=== PATIENT | male | born 1940 | race Caucasian/White ===

== ENCOUNTER 2018-01-15 13:40 | Outpatient (CLI) | payer MEDICARE, OTHER | END 2018-01-15 13:41 | disposition home or self-care (01) | LOC: BICULT 13:40 | PROVIDERS: ATTEND Internal Medicine | DX: N28.9 Disorder of kidney and ureter, unspecified (principal); N26.1 Atrophy of kidney (terminal) | CPT/HCPCS: 76770 ==

== ENCOUNTER 2018-03-07 15:10 | Outpatient (CLI) | payer MEDICARE, OTHER | END 2018-03-07 15:11 | disposition home or self-care (01) | LOC: BICRAD 15:10 | PROVIDERS: ATTEND Internal Medicine Medical Oncology | DX: D72.1 Eosinophilia (principal) | CPT/HCPCS: 71046 ==

== ENCOUNTER 2018-03-13 08:15 | Outpatient (CLI) | payer MEDICARE, OTHER ==
--- NOTE | 2018-03-13 11:24 | CT ---
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 COMPARISON: No prior CTs. There is a chest radiograph from 03/07/2018 done at the [facility] ing [facility] in [place] (formerly [facility]). TECHNIQUE: IV iodinated contrast media: Isovue-370 70 mL Oral contrast media: Readi-Cat 2 Single phase scans of thorax, abdomen, and pelvis. FINDINGS: The lesion in the left scapula, demonstrated on the plain chest radiograph, is demonstrated on this C T to represent a mixed sclerotic and osteolytic lesion that involves the entire glenoid, at least a p ortion of the coracoid, the scapular spine, and a portion of the acromion, of the left scapula. The lesion is at least mildly expansile, but the overlying cortex is preserved, with no periosteal elevat ion and no soft tissue mass component (i.e. a nonaggressive appearance). There is a 0.4 x 0.3 cm, no ncalcified, tiny pulmonary nodule in the lingula (axial image 39 of 60, series 3), which is probably too caudal to correspond to the faint pulmonary nodular density noted on the chest radiograph. There is no pulmonary nodule that exactly corresponds to that nodularity density on the chest radiograph. Additional tiny, faint, nodular, and linear densities abutting the left posteromedial pleural surfac e, and posterolateral pleural surface, of the left lower lobe are noted. These are nonspecific. At least one of these could represent small scar. There are additional tiny, [id number]-[id number] pulmonar y nodules on the order of less than 4 mm in size each, a few scattered bilaterally in the lungs. The re is no particularly suspicious pulmonary nodule and no cavitating pulmonary mass. There is a small , 5 mm pulmonary nodule at the posterior basilar segment of the left lower lobe, near the left mental health worker ior costophrenic angle, abutting the left hemidiaphragm. There is no mediastinal or hilar lymphadeno godwin. Atherosclerotic calcification of the thoracic aorta without aneurysm or dissection. No cardi omegaly, pleural effusion, or pneumothorax. No bronchiectasis or bullae. There is a 4 x 3.5 x 2.5 cm hepatic cyst in hepatic segment 4A of the left lobe. There is a 2 x 2 x 3.5 cm hepatic cyst at the far inferior tip of the right lobe of the liver, in hepatic segment 6. Th ere are a few other tiny, subcentimeter hypodensities in the left and right lobes that are too small to characterize, but statistically most likely represent additional cysts. Atherosclerotic calcifica tion of nonaneurysmal abdominal aorta. No major pathology identified involving the bilateral kidneys , the right adrenal, the pancreas, or the spleen. Thickening of the left adrenal gland, suggestive o f hyperplasia. No gastrohepatic, elizabeth hepatis, retroperitoneal, mesenteric, or iliac chain signific ant lymphadenopathy. No small bowel dilation. No free fluid or free air within the abdominal cavity or pelvic cavity. A large number of diverticula throughout the sigmoid colon, without gross evidenc e of diverticulitis. Decompressed urinary bladder, difficult to evaluate. No destructive osseous le michael identified. IMPRESSION: 1. 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 The other possibility is fibrous dysplasia. 2. Multiple tiny bilateral noncalcified pulmonary nodules, nonspecific. Based on their sizes, they are of low probability for malignancy. 3. Hepatic cysts. 4. Sigmoid colonic diverticulosis without diverticulitis. 5. No definitive evidence for malignancy. HALIMA Mckinnon POS: [facility]
[2018-03-13] MEDS ORDERED: Iopamidol 370 76% 100 ML VIAL ONE (11:34)
--- NOTE | 2018-03-13 11:53 | ULT ---
THYROID ULTRASOUND: Date: 03/13/18 HISTORY: 77-year-old male with history of eosinophilia. Paraneoplastic syndrome. FINDINGS: The right lobe measures 4.0 x 1.5 x 2.1 cm. The left lobe measures 3.7 x 1.6 x 1.6 cm. Thyroid echoge nicity is very heterogeneous around both right and left lobes. A small hypodense nodule in the right lobe measuring 0.4 x 0.4 x 0.8 cm. Small 0.3 x 0.3 x 0.4 cm nodule, hypoechoic, in the left lobe. IMPRESSION: Very heterogeneous echogenicity throughout both right and left lobes of thyroid. Small hypoechoic nod ules in right and left lobes. POS: [facility]
== END 2018-03-13 08:16 | disposition home or self-care (01) ==
LOC: CT 08:15
PROVIDERS: ATTEND Internal Medicine Medical Oncology
DX: D72.1 Eosinophilia (principal); R91.8 Other nonspecific abnormal finding of lung field; K76.89 Other specified diseases of liver; K57.30 Diverticulosis of large intestine without perforation or abscess without bleeding; E04.2 Nontoxic multinodular goiter; M75.92 Shoulder lesion, unspecified, left shoulder
CPT/HCPCS: 71260; 74177; 76536

== ENCOUNTER 2018-09-01 10:02 | Observation (INO) | payer MEDICARE, OTHER ==
[2018-09-01 10:52] LABS: #Basophils 0.1 thou/uL (0.0-0.2); #Eosinphils 1.7 thou/uL (0.0-0.7); #Lymphocytes 2.7 thou/uL (1.20-3.40); #Monocytes 0.6 thou/uL (0.11-0.59); #Neutrophils 4.1 thou/uL (1.40-6.50); %Basophils 1.2 % (0.0-1.0); %Eosinophils 18.5 % (0.0-10.0); %Lymphocytes 29.1 % (21.0-51.0); %Monocytes 6.8 % (0.0-10.0); %Neutrophils 44.4 % (42.0-75.0); Hemoglobin 15.7 g/dL (14.0-18.0); Mean Corpuscular HGB CONC 33.6 g/dL (32.0-36.0); Mean Corpuscular Volume 92.3 fL (78.0-98.0); Mean Platelet Volume 6.8 fL (7.4-10.4); Platelet Count 338 thou/uL (130-400); RBC Distribution Width 11.6 % (11.5-14.5); Red Blood Cell (RBC) Count 5.07 mill/uL (4.70-6.10); White Blood Cell (WBC) Count 9.2 thou/uL (4.8-10.8)
[2018-09-01] MEDS ORDERED: Nitroglycerin 2% Ointment 1 INCH/1 GM Packet ONE (10:55)
--- NOTE | 2018-09-01 10:55 | RAD ---
SINGLE VIEW OF THE CHEST: Comparison: 03-07-18 History: Left shoulder and chest pain. FINDINGS: Single view of the chest shows a normal sized cardiomediastinal silhouette. There is no evidence of c onsolidation, mass, or pleural effusion. The bones are unremarkable. IMPRESSION: No evidence of acute cardiopulmonary disease. POS: [facility]
[2018-09-01 11:14] LABS: ALT (SGPT) 18 U/L (8-55); AST (SGOT) 16 U/L (5-34); Albumin 4.6 g/dL (3.4-4.8); Alkaline Phosphatase 85 U/L (40-150); Anion Gap 15 mmol/L (10-20); BUN (Urea Nitrogen) 22 mg/dL (8.4-25.7); Bilirubin, Total 0.6 mg/dL (0.2-1.2); CK (CPK) 73 U/L (30-200); Calc. Creatinine Clearance 0 mL/min (70-130); Calcium 9.9 mg/dL (7.8-10.44); Carbon Dioxide 23 mmol/L (23-31); Chloride 104 mmol/L (98-107); Estimated GFR-MDRD 53; Globulin 2.8 g/dL (2.4-3.5); Glucose 111 mg/dL (83-110); Lipase 19 U/L (8-78); Potassium 4.7 mmol/L (3.5-5.1); Protein, Total 7.4 g/dL (5.8-8.1); Sodium 137 mmol/L (136-145)
[2018-09-01 11:16] LABS: CKMB 1.7 ng/mL (0-6.6); Troponin I Less than 0.010 ng/mL (< 0.028)
[2018-09-01] MEDS ORDERED: Dextrose 5% in Water 1,000 ML IV PRN (13:36)
[2018-09-01] MEDS ORDERED: Calcium Carbonate 500 MG ChewTAB PO PRN (13:36)
[2018-09-01] MEDS ORDERED: Ondansetron ODT 4 MG TAB PO PRN (13:36)
[2018-09-01] MEDS ORDERED: HYDROcodone/Acetaminophen 5/325 mg Tablet PO PRN (13:36)
[2018-09-01] MEDS ORDERED: Nitroglycerin 0.4 MG TAB (25 Tab Bottle) SL PRN (13:36)
[2018-09-01] MEDS ORDERED: HumaLOG 300 UNITS/3 ML VIAL SC PRN ×2 (13:36)
[2018-09-01] MEDS ORDERED: Ondansetron HCl/PF 4 MG/2 ML Vial IVP PRN (13:36)
[2018-09-01] MEDS ORDERED: Acetaminophen 325 MG TAB PO PRN (13:36)
[2018-09-01] MEDS ORDERED: Bisacodyl 10 MG SUPP PR PRN (13:36)
[2018-09-01] MEDS ORDERED: Diabetic Tussin 200 MG/10 ML UDCUP PO PRN (13:36)
[2018-09-01] MEDS ORDERED: Dextrose 50% Abboject 50 ML SYRINGE SLOW IVP PRN (13:36)
[2018-09-01] MEDS ORDERED: Sodium Chloride 0.65% Nasal 44 ML BOT EA NARE PRN (13:36)
[2018-09-01] MEDS ORDERED: Bisacodyl 5 MG TAB PO PRN (13:36)
[2018-09-01] MEDS ORDERED: hydrALAZINE 20 MG/ML VIAL SLOW IVP PRN (13:36)
[2018-09-01] MEDS ORDERED: Loratadine 10 MG TAB PO PRN (13:36)
[2018-09-01] MEDS ORDERED: Zolpidem Tartrate 5 MG TAB PO PRN (13:36)
[2018-09-01] MEDS ORDERED: Eucerin (Mineral Oil/Petrolatum,White) 30 gm Jar TOP PRN (13:36)
[2018-09-01] MEDS ORDERED: Loperamide HCl 2 MG CAP PO PRN (13:36)
[2018-09-01] MEDS ORDERED: Chloraseptic Spray 180 ml Bottle PO PRN (13:36)
[2018-09-01] MEDS ORDERED: Artificial Tears 18 DROP/0.9 ML EA EYE PRN (13:36)
[2018-09-01 13:49] VITALS: BMI 25.4
--- NOTE | 2018-09-01 13:58 | HP ---
DATE OF ADMISSION: 09/01/2018 PRIMARY CARE PHYSICIAN: Lydia Hatfield M.D. REASON FOR ADMISSION: Sent by primary care physician for chest pain. HISTORY OF PRESENT ILLNESS: A 77-year-old male who has underlying history of hiatal hernia as well a s gastroesophageal reflux disease who came to emergency room for chest pain. The patient reports becki t today he made an appointment with Dr. Hatfield for his recurrent chest pain. The patient had EKG don e in his primary care physician's office, which was normal and the patient was given aspirin at the [facility] and subsequently primary care physician sent him to ER for further evaluation. This patient reports that for last 1 year, he is getting intermittent chest discomfort a couple of ti mes a year, but for the last 2 weeks, he is experiencing more and more chest discomfort, which is pre dominantly left-sided in location, sometimes it radiates to left shoulder and left arm, sometimes it just remains in the left side of the chest. He feels nausea. Sometimes he reports that after walkin g to a few distance, his chest pain gets better. Burping also helps. He feels nausea, but never had any vomiting. The patient attributes his chest discomfort to his history of hiatal hernia and gastr oesophageal reflux disease. For that, he is taking Nexium. He had endoscopy done a few years ago. He denies any NSAID abuse. He denies any black tarry stool. He denies any weight loss. He denies a ny dysphagia. The patient reports that he is doing nonpharmacological measures for his acid reflux, but still his s ymptoms are not well controlled. He is taking Nexium daily. He never had any cardiac workup done. For the last 4 days, he was having more and more chest discomfort and that is why he made appointment with primary care physician today and primary care physician sent him to ER for cardiac workup rule out. The patient does report epigastric discomfort. The patient does report that after eating food, he fe els food smell whatever he ate several hours ago. He denies any regurgitation. He denies any UTI sy mptoms. He denies any constipation or diarrhea. REVIEW OF SYSTEMS: The following complete review of systems was negative, unless otherwise mentioned in the HPI or below: Constitutional: Weight loss or gain, ability to conduct usual activities. Sk in: Rash, itching. Eyes: Double vision, pain. ENT/Mouth: Nose bleeding, neck stiffness, pain, te nderness. Cardiovascular: Palpitations, dyspnea on exertion, orthopnea. Respiratory: Shortness of breath, wheezing, cough, hemoptysis, fever or night sweats. Gastrointestinal: Poor appetite, abdom inal pain, heartburn, nausea, vomiting, constipation, or diarrhea. Genitourinary: Urgency, frequenc y, dysuria, nocturia. Musculoskeletal: Pain, swelling. Neurologic/Psychiatric: Anxiety, depressio n. Allergy/Immunologic: Skin rash, bleeding tendency. Please see my HPI for pertinent positive and negative. All other review of system reviewed and negative except as mentioned in the HPI. 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 PAST SURGICAL HISTORY: C-spine surgery, appendicectomy, sinus surgery, surgery for ruptured ulcer. PAST PSYCHIATRIC HISTORY: Reviewed and negative. SOCIAL HISTORY: The patient denies any smoking or alcohol abuse. He is a former smoker. He denies any other illicit drug abuse. FAMILY HISTORY: Positive for heart disease, [place] to his father by age of 50. No family history of can cer. ALLERGIES: No known drug allergy. CURRENT HOME MEDICATIONS: The patient did not bring his home medication, so unable to verify, but he reports that he is taking Nexium. We will obtain the patient's home medication when family member b rings from home. EMERGENCY ROOM COURSE: The patient was given aspirin by primary care physician. Nitropatch was appl ied in the emergency room. PHYSICAL EXAMINATION: VITAL SIGNS: On arrival, blood pressure 159/89, pulse 69, respiratory rate 15, temperature 98.4, sat uration 99% on room air, weight 71.2 kilograms. GENERAL: The patient is currently alert, awake, in no obvious acute distress. HEAD: Normocephalic, atraumatic. EYES: Pupils round and reactive to light. Extraocular muscles intact. ENT: Oropharynx within normal limits. Moist mucous membranes. No oral lesion, no pharyngeal erythe ma, no exudate. NECK: Supple, no JVD, no thyromegaly, no carotid bruit, no jugular venous distention. LUNGS: Clear to auscultation without any rhonchi or rales. CARDIAC: S1, S2 regular. No murmur, no gallop, no rub. ABDOMEN: The patient does have mild epigastric discomfort. No peritoneal sign, no Boswell sign, no o rganomegaly, no distention, no suprapubic tenderness. BACK: Unremarkable. No CVA tenderness. EXTREMITIES: Upper extremities, passive movement of all joints are normal. Lower extremities, no ed brennon. Good distal pulsation. SKIN: No skin rash. HEMATOLOGICAL: No lymphadenopathy. PSYCHIATRIC: Normal affect. SIGNIFICANT LABORATORY DATA: EKG showing normal sinus rhythm, nonspecific ST-T changes. Chest x-ray based on my review, no acute cardiopulmonary process. CBC, WBC 9.2, hemoglobin 15.7, platelets 338, 000. BMP, sodium 137, potassium 4.7, chloride 104, carbon dioxide 23, BUN 22, creatinine 1.30, gluco se 111, calcium 9.9. LFT, AST 16, ALT 18, alkaline phosphatase 85, albumin 4.6, lipase 19. CK is 73 , CK-MB 1.7. Troponin I less than 0.010. ASSESSMENT AND PLAN: 1. Recurrent chest pain. The patient's chest pain description is predominantly consistent with priscila rointestinal etiology related. The patient never had a cardiac workup done and he has family history and other risk factors for coronary artery disease. The patient and primary care physician are conc erned about cardiac etiology. At this point, EKG is nonspecific and cardiac enzymes are negative. W e will keep this patient in hospital and we will do serial cardiac enzymes x3 and we will monitor on telemetry floor. This morning, the patient already had coffee and home medication, so we will not be able to do stress test today, but we will keep him n.p.o. after midnight and will do stress test teodora orrow morning. We will check lipid profile for risk stratification. We will also treat his symptoms with Protonix 40 mg IV b.i.d. while in hospital. This patient does not have any alarming feature to do any gastrointestinal workup while in hospital. 2. Gastroesophageal reflux disease, poorly controlled with hiatal hernia. He might have underlying gastritis. At this point, we will treat him with Protonix 40 mg IV b.i.d. He does not have any alar uma feature. He already had upper endoscopy in the recent past and he will need outpatient referral to hooker laster and based on that finding, the patient may benefit in the future for hiatal he rnia repair. At this point, the patient needs conservative therapy with medicines and I have also ed ucated the patient about nonpharmacological treatment of gastroesophageal reflux disease and hiatal h ernia. 3. History of diabetes type 2. We will obtain the patient's home medication and we will monitor Acc u-Chek a.c. and at bedtime and cover with insulin as per sliding scale. 4. Hypertension. We will obtain the patient's home medication and resume while in hospital. 5. Hypothyroidism. We will continue the patient's home medication. 6. Dyslipidemia. Check lipid profile tomorrow and continue his statin therapy. 7. Deep venous thrombosis prophylaxis not needed because we are expecting discharge in 24 hours. 8. Gastrointestinal prophylaxis, the patient is already on Protonix therapy. 9. Code status: The patient is full code. The patient's daughter is surrogate decision maker. Disposition plan based on stress test result, likely within 24 hours. Plan of care discussed with cara hanna patient and family member at bedside in the emergency room in detail.
[2018-09-01 14:18] LABS: Troponin I Less than 0.010 ng/mL (< 0.028)
[2018-09-01] MEDS ORDERED: Aspirin 325 MG TAB PO SCH (14:45)
[2018-09-01 17:30] LABS: Troponin I Less than 0.010 ng/mL (< 0.028)
[2018-09-01] MEDS: Nitroglycerin 2% Ointment 1 INCH/1 GM Packet TOP SCH ×2 (18:05→20:55)
[2018-09-01] MEDS ORDERED: diphenhydrAMINE 25 MG CAP PO PRN (20:34)
[2018-09-01] MEDS: Pantoprazole 40 MG VIAL IVP SCH (20:55)
[2018-09-02 04:46] LABS: Cardiac Risk 6.7 (Less than 4.5)
[2018-09-02] MEDS ORDERED: Levothyroxine Sodium 25 MCG TAB PO SCH (06:00)
[2018-09-02 08:09] VITALS: TEMP 97.7
[2018-09-02] MEDS: Pantoprazole 40 MG VIAL IVP SCH (08:58)
[2018-09-02] MEDS ORDERED: Aspirin 325 MG TAB PO SCH (09:00)
[2018-09-02] MEDS ORDERED: Amlodipine 10 MG TAB PO SCH (09:00)
[2018-09-02] MEDS: Nitroglycerin 2% Ointment 1 INCH/1 GM Packet TOP SCH (11:00)
[2018-09-02 11:37] VITALS: BP 130/61
--- NOTE | 2018-09-02 13:46 | NM ---
MYOCARDIAL PERFUSION SCAN WITH SPECT IMAGING: HISTORY: Chest pain. TECHNIQUE/FINDINGS: Examination is performed using 33 mCi 99m-technetium sestamibi on the stress and 10 on the resting im ages. This shows a normal distribution of radiopharmaceutical. No signs of ischemia or scar. WALL MOTION: There is symmetric contractility to the ventricle. LEFT VENTRICULAR EJECTION FRACTION: The calculated left ventricular ejection fraction is 77%. IMPRESSION: Unremarkable myocardial perfusion scan. POS: [facility]
[2018-09-02] MEDS ORDERED: Atorvastatin Calcium 40 MG TAB PO SCH (21:00)
--- NOTE | 2018-09-03 01:22 | DIS ---
DATE OF ADMISSION: 09/01/2018 DATE OF DISCHARGE: 09/02/2018 DIAGNOSES: 1. Chest pain, most likely gastrointestinal in etiology. 2. Gastroesophageal reflux disease. 3. Hiatal hernia. 4. Essential hypertension. 5. Dyslipidemia. CONSULTATIONS: None. CODE STATUS: FULL. PROCEDURES: Chest x-ray was unremarkable. Nuclear medicine stress test with EF of 77%, unremarkable . PHYSICAL EXAMINATION: VITAL SIGNS: Temperature 97.7, pulse is 69, respirations are 16, pulse oximetry 94% on room air. Bl ood pressure is 130/61. REVIEW OF SYSTEMS: Negative. PHYSICAL EXAMINATION: Normal on exam this morning. HOSPITAL COURSE: Patient was sent to the ER from the PCP office yesterday for chest pain which has b een intermittent for the last year, but worse in the last 2 weeks and is complaining of some nausea. She denies vomiting or diarrhea. Serial troponins were negative. Stress test was unremarkable. La bs were also unremarkable other than some lipidemia, which will be treated today. He reports no ches t pain. Reports some epigastric discomfort, but it is improved after medications given to him today and he will be discharged home to follow up with his PCP in a week. ALLERGIES: None. DISCONTINUED MEDS NEW: Lipitor 40 mg p.o. daily. We will resume amlodipine 10 mg p.o. daily, Nexium 40 mg p.o. daily, enalapril 20 mg p.o. daily, and levothyroxine 25 mcg p.o. daily. DISCHARGE CONDITION: Stable. DISPOSITION: Home via private vehicle with the need to follow up with Dr. Hatfield in 1 week.
--- NOTE | 2018-09-04 11:11 | STRESS ---
Acquisition Time: 2018-09-02 09:58:21 Total Exercise Time: 00:09:00 Test Indications: CHEST PAIN Medications: Protocol: JOE Max HR: 129 BPM 91% of Pred: 141 BPM Max BP: 138/052 mmHG Max Work Load: 10.4 METS RESTING ECG: NORMAL SINUS RHYTYM WITH INCOMPLETE RIGHT BUNDLE BRANCH BLOCK SYMPTOMS: LOPEZ NORMAL BP RESPONSE ECTOPY: NONE ECG STRESS: NO SIGNIFICANT CHANGES INTERPRETATION: NEGATIVE ECG / AWAIT NUCLEAR IMAGES FOR DEFINITIVE DIAGNOSIS COMMENTS: EXERCISED 9:00 PEAK HEART RATE 127 BPM Confirmed by JEAN MARIE LÓPEZ ([id number]), video editor NATALIE FOX ([id number]) on 09/04/2018 11:11:10 AM Referred By: MD PRIETO Confirmed By:JEAN MARIE LÓPEZ
== END 2018-09-02 14:52 | disposition home or self-care (01) ==
LOC: ERS 10:02 → 2SW 12:24
PROVIDERS: ADMIT Internal Medicine; ATTEND Internal Medicine
DX: R07.89 Other chest pain (principal); K21.9 Gastro-esophageal reflux disease without esophagitis; K44.9 Diaphragmatic hernia without obstruction or gangrene; E11.9 Type 2 diabetes mellitus without complications; E03.9 Hypothyroidism, unspecified; E78.5 Hyperlipidemia, unspecified; I10 Essential (primary) hypertension; H90.5 Unspecified sensorineural hearing loss; Z79.899 Other long term (current) drug therapy
CPT/HCPCS: 71045; 78452; 80053; 80061; 82550; 82553; 82962 ×2; 83690; 84484 ×2; 85025; 90662; 93005; 93017; 96374; 99285; A9500; G0008; G0378 ×2; 36415; 36416; 90471; C9113

== ENCOUNTER 2018-09-19 09:40 | Outpatient (CLI) | payer MEDICARE, OTHER ==
[2018-09-19] MEDS ORDERED: ISOVUE-370 76%-LOCM 1 ML ONE (10:36)
--- NOTE | 2018-09-19 16:36 | CT ---
CT ABDOMEN WITH AND WITHOUT IV CONTRAST: 09/19/18 HISTORY: Constipation. Gastroesophageal reflux. Prior cystic lesions in the liver. Followup exam. COMPARISON: 03/13/18. FINDINGS: Vascular calcifications are seen in the visualized thoracic as well as involving the abdominal aorta and iliac arteries. Again noted are multiple tiny noncalcified pulmonary nodules present at each lung base, greater on th e right with calcified granulomata also seen in the right lower lobe and calcified right hilar lymph nodes partially imaged. These findings are unchanged from the prior exam. The hypodense hepatic lesions are again seen with larger hepatic hypodense lesion measuring 4.1 cm in the left hepatic lobe again demonstrating characteristics most compatible with a cyst with a fluid a ttenuation hypodense lesion measuring 3.4 cm again seen in the most inferior aspect posterior segment right hepatic lobe. A few subcentimeter too small to characterize hypodense lesions are also again s een in the liver, also statistically likely related to cysts. Stable mild lobulated appearance of each kidney which may be related to lobulation. Calcified granulomata are seen in the spleen. The pancreas, bilateral adrenal glands, and opacified bowel demonstrate a normal CT appearance. Sugge sted area of thickening in the most inferior slice through the pelvis within the ascending colon. How ever, this is incompletely imaged or evaluated on this examination. No abnormality was present in thi s region on prior CT exam and this may be related to area of peristalsis. Opacified small bowel is no rmal in caliber. IMPRESSION: 1. Stable 4 mm or less pulmonary nodules at each lung base, greater in number on the right e. 2. Hepatic cysts. 3. Suggested area of thickening of the ascending colon, but this area is incompletely imaged, an d no abnormality was seen in this region on the prior study. This may be related to peristalsis but i s incompletely evaluated on this exam. 4. Vascular calcifications. POS: [facility]
== END 2018-09-19 09:41 | disposition home or self-care (01) ==
LOC: BICCT 09:40
PROVIDERS: ATTEND Internal Medicine
DX: K21.9 Gastro-esophageal reflux disease without esophagitis (principal); K59.00 Constipation, unspecified; K76.89 Other specified diseases of liver; I70.90 Unspecified atherosclerosis; R93.3 Abnormal findings on diagnostic imaging of other parts of digestive tract; R91.8 Other nonspecific abnormal finding of lung field
CPT/HCPCS: 74170

== ENCOUNTER 2019-01-24 16:46 | Inpatient (IN) | payer MEDICARE, OTHER ==
[~2019-01-24 16:46] MED LIST: ISOVUE-370 76%-LOCM 1 ML ONE
[2019-01-24 17:17] LABS: #Basophils 0.1 thou/uL (0.0-0.2); #Eosinphils 1.9 thou/uL (0.0-0.7); #Lymphocytes 3.9 thou/uL (1.20-3.40); #Neutrophils 5.8 thou/uL (1.40-6.50); %Basophils 0.8 % (0.0-1.0); %Eosinophils 14.8 % (0.0-10.0); %Lymphocytes 30.7 % (21.0-51.0); %Monocytes 7.5 % (0.0-10.0); %Neutrophils 46.2 % (42.0-75.0); Hemoglobin 16.4 g/dL (14.0-18.0); Mean Corpuscular HGB CONC 33.5 g/dL (32.0-36.0); Mean Corpuscular Hemoglobin 31.6 pg (27.0-31.0); Mean Corpuscular Volume 94.4 fL (78.0-98.0); Platelet Count 405 thou/uL (130-400); RBC Distribution Width 11.5 % (11.5-14.5); Red Blood Cell (RBC) Count 5.19 mill/uL (4.70-6.10); White Blood Cell (WBC) Count 12.6 thou/uL (4.8-10.8)
[2019-01-24 17:22] LABS: PTT 28.6 SEC (22.9-36.1); Prothrombin Time 13.3 SEC (12.0-14.7)
[2019-01-24 17:31] LABS: ALT (SGPT) 19 U/L (8-55); AST (SGOT) 20 U/L (5-34); Albumin 4.9 g/dL (3.4-4.8); Alkaline Phosphatase 101 U/L (40-150); Anion Gap 17 mmol/L (10-20); BUN (Urea Nitrogen) 23 mg/dL (8.4-25.7); Bilirubin, Total 0.3 mg/dL (0.2-1.2); CK (CPK) 184 U/L (30-200); Calc. Creatinine Clearance 0 mL/min (70-130); Calcium 10.1 mg/dL (7.8-10.44); Carbon Dioxide 22 mmol/L (23-31); Chloride 104 mmol/L (98-107); Estimated GFR-MDRD 44; Globulin 3.4 g/dL (2.4-3.5); Glucose 110 mg/dL (83-110); Potassium 4.3 mmol/L (3.5-5.1); Protein, Total 8.3 g/dL (5.8-8.1); Sodium 139 mmol/L (136-145)
--- NOTE | 2019-01-24 17:38 | CT ---
CT BRAIN 01/24/19 HISTORY: Left sided arm and leg weakness with aphasia. Noncontrast enhanced CT images of the brain obtained. Brain and bone windows obtained. CT images demonstrate the brain to be unremarkable. No evidence of intracranial masses, hemorrhages, strokes or contusions seen. Small area of calcification seen in the left globus pallidus. The rest of the brain is unremarkable. No evidence of other significant abnormalities seen. IMPRESSION: Unremarkable CT brain. Findings discussed with Dr. Juan, ordering physician, at 5:28 p.m. on 01/24/19. Code CR POS: [facility]
[2019-01-24] MEDS ORDERED: Aspirin 325 MG TAB ONE (18:11)
--- NOTE | 2019-01-24 18:38 | CT ---
CONTRAST ENHANCED CTA CAROTID ARTERIES AND INTRACRANIAL CTA 01/24/19 HISTORY: Patient with clinical symptoms of stroke. Left sided weakness. Contrast enhanced CT images of carotid arteries (neck) and intracranial CTA performed. 2D and 3D huong nstructed images performed on an independent 3D workstation. Images demonstrate ACDF with fusion of the C4, C5 and C6 vertebral levels. There is anterior bridging osteophyte also abutting the superior aspect of the ACDF plates extending from the C3 level. Calcifi cation of the aorta seen. the right brachiocephalic artery is patent. RIGHT CAROTID: The right common carotid artery is patent in the proximal and mid portions. In the distal most aspect of the right CCA, there is dense calcified and noncalcified plaque resulting in approximately 70% di stal right CCA and proximal right ICA stenosis. Just passed the bifurcation the right ICA is patent. Good flow is seen in the right ICA into the intracranial portion. LEFT CAROTID: The left common carotid artery has some atherosclerotic calcified and noncalcified plaques in the dis verito aspect of the left CCA extending to the left ICA resulting in approximately 40% left ICA stenosis . More distally, the left ICA is patent. The right and left vertebral arteries are patent all the way to their origin. Both vertebral arteries contain some calcified plaques in their proximal most aspect as they originate from the right and le ft subclavian arteries. INTRACRANIAL CTA: Normal flow seen in the supraclinoid ICA, MARII, MCA, as well as basilar artery and posterior cerebral arteries. IMPRESSION: 1. Bilateral origin vertebral artery calcifications. 2. Bilateral distal CCA and proximal ICA calcified and noncalcified plaques more prominent on th e right than on the left. POS: [facility]
--- NOTE | 2019-01-24 18:58 | RAD ---
AP VIEW CHEST 01/24/19 HISTORY: Neck pain. Chest pain. AP view chest is obtained on 01/24/19. Comparison made to a previous exam from 09/01/18. AP view chest demonstrates the lungs to be well aerated. No evidence of active intrathoracic disease seen. No evidence of effusions, pneumonia, or pneumothorax seen. IMPRESSION: Unremarkable AP view chest. POS: [facility]
[2019-01-24] MEDS ORDERED: hydrALAZINE 20 MG/ML VIAL SLOW IVP PRN (19:40)
[2019-01-24] MEDS ORDERED: Acetaminophen 650 MG Suppository PR PRN (19:46)
[2019-01-24] MEDS ORDERED: Ondansetron ODT 4 MG TAB PO PRN (19:46)
[2019-01-24] MEDS ORDERED: Acetaminophen 325 MG TAB PO PRN (19:46)
[2019-01-24 20:06] LABS: Lactic Acid 2.4 mmol/L (0.5-2.2)
[2019-01-24 23:11] VITALS: BMI 25.2
[2019-01-24] MEDS: Famotidine/PF 20 mg/2ml Vial SLOW IVP SCH (23:41)
[2019-01-24] MEDS: Benzonatate 100 MG CAP PO SCH (23:42)
[2019-01-25] MEDS: Sodium Chloride 0.9% 1,000 ML IV SCH ×2 (01:44→14:18)
--- NOTE | 2019-01-25 01:55 | HP ---
CHIEF COMPLAINT: Left tongue numbness with slurred speech and left upper/lower extremity weakness. HISTORY OF PRESENT ILLNESS: Mr. Latham is a very pleasant 78-year-old man, presenting with complaints of left tongue numbness that started at approximately 3:00 or 4:00 pm. He states he began to note slurring of his speech and then began to experience numbness along the left side of his face, pain in the left neck and weakness in the left arm and left leg. The patient states his symptoms resolved shortly after arriving to the emergency department. He was given 325 mg of aspirin at 6:00 pm. He denies having any associated headaches or vision disturbances. At this present time, he is fully back to baseline. He denies having any symptoms like this before. He has a background history of hypertension and dyslipidemia. The patient states he was recently treated for bronchitis by his primary care physician and recently completed a course of antibiotics. He does not use an inhaler at home, but recently was given one to help with his breathing. He reports having a persistent cough that was on occasion productive for [place] sputum. He denies any hemoptysis. He has been afebrile, but complaining of persisting coughing fits. REVIEW OF SYSTEMS: All other review of systems apart from those mentioned in HPI are negative. PAST MEDICAL HISTORY: 1. Hypertension. 2. Hypothyroidism. 3. Dyslipidemia. 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 5. History of colon polyps. 6. History of duodenal ulcers. 7. GERD. PAST SURGICAL HISTORY: 1. Previous spine surgery. 2. Appendectomy. 3. Sinus surgery. 4. Surgery for a perforated ulcer. SOCIAL HISTORY: The patient drinks alcohol socially. He smoked previously many years ago. Denies any drug use. He is fully independent and mobilizes without any assistive devices. ALLERGIES: HYDROCODONE. CURRENT MEDICATIONS: 1. Amlodipine 10 mg p.o. daily. 2. Esomeprazole 40 mg p.o. daily. 3. Enalapril 10 mg p.o. daily. 4. Crestor 10 mg p.o. daily. 5. ProAir HFA 90 mcg two puffs inhaled p.r.n. 6. Levothyroxine 25 mcg p.o. daily. PHYSICAL EXAMINATION: GENERAL: The patient appears well developed, well nourished, is in no acute distress. VITAL SIGNS: Temperature 98.7, pulse 70, respirations 17, O2 saturation 94% on room air, blood pressure 142/74. HEENT: Normocephalic and atraumatic. Pupils are equal, round, and reactive to light. Extraocular movements are intact without nystagmus. Oropharynx is clear. NECK: Supple without lymphadenopathy or tenderness. LUNGS: Notable for mild expiratory wheezes at the bilateral bases. Deep inspiration causes coughing fits. Denies any chest pain. CARDIAC: Regular rate and rhythm. ABDOMEN: Soft, nontender, nondistended. Normoactive bowel sounds present. EXTREMITIES: Without any edema, calf pain, or swelling. NEUROLOGIC: Alert and oriented x3. Power 5/5 in all limbs. No neuro deficits on exam. Sensation intact. No tongue deviation. Facial movements normal. Face sensation is intact. No cerebellar signs. SKIN: Without rash or jaundice. LABORATORY DATA: White blood count 12.6, hemoglobin 16.4, platelets 405. PT 13.3, INR 1.0, PTT 28.6. Sodium 139, potassium 4.3, carbon dioxide 22, anion gap 17, BUN 23, creatinine 1.52, GFR 44, lactate 2.4, calcium 10.1, total bilirubin 0.3, AST 20, ALT 19, alkaline phosphatase 101, CK 184, troponin negative. BNP 15.9. IMAGING DATA: 1. Chest x-ray. Unremarkable with no evidence of effusions or pneumonia. 2. CT brain. Unremarkable. 3. CT angio of head and neck. Bilateral origin vertebral artery calcifications. Bilateral distal CCA and proximal ICA calcified and noncalcified plaques, more prominent on the right than on the left. IMPRESSION AND PLAN: Mr. Latham is a very pleasant 78-year-old man, being admitted for management of the following. 1. TIA/stroke. The patient's symptoms have fully resolved. He has undergone imaging as above that has been unremarkable thus far. We have requested an echo, carotid ultrasound, and MRI of the brain. Neuro consult requested. The patient has been started on aspirin and atorvastatin. 2. Bronchitis. Likely viral, he recently completed a course of antibiotics and possibly steroids. Leukocytosis could be due to recent steroid use, but we will continue to monitor. The patient is afebrile. Procalcitonin ordered. For cough we will give Tessalon Perles and guaifenesin. DuoNebs as he had a slight wheeze on exam. Monitor on O2 saturation and temperature. Chest x-ray was negative. 3. Hypertension. Resume home medications. Monitor blood pressure. 4. Gastrointestinal prophylaxis. 5. Deep venous thrombosis prophylaxis. Mechanical SCDs. 6. Code status, full at the present time. The patient does wish to discuss advanced directives as there are things he feels he may not want done such as mechanical ventilation. He would like to discuss this further with his family. A palliative care consult has been placed for advance directives. The patient's case was discussed with Dr. George, who agrees with plan of care as described above. Job ID: [id number] MTDD
[2019-01-25] MEDS: Levothyroxine Sodium 25 MCG TAB PO SCH (05:43)
[2019-01-25 05:45] LABS: #Basophils 0.1 thou/uL (0.0-0.2); #Eosinphils 1.7 thou/uL (0.0-0.7); #Lymphocytes 3.5 thou/uL (1.20-3.40); #Monocytes 0.9 thou/uL (0.11-0.59); #Neutrophils 4.2 thou/uL (1.40-6.50); %Basophils 0.8 % (0.0-1.0); %Eosinophils 16.2 % (0.0-10.0); %Lymphocytes 34.4 % (21.0-51.0); %Monocytes 8.3 % (0.0-10.0); %Neutrophils 40.3 % (42.0-75.0); Hemoglobin 13.5 g/dL (14.0-18.0); Mean Corpuscular HGB CONC 33.5 g/dL (32.0-36.0); Mean Corpuscular Hemoglobin 31.8 pg (27.0-31.0); Mean Corpuscular Volume 94.8 fL (78.0-98.0); Mean Platelet Volume 7.1 fL (7.4-10.4); Platelet Count 317 thou/uL (130-400); RBC Distribution Width 11.6 % (11.5-14.5); Red Blood Cell (RBC) Count 4.26 mill/uL (4.70-6.10); White Blood Cell (WBC) Count 10.3 thou/uL (4.8-10.8)
[2019-01-25 06:05] LABS: Anion Gap 13 mmol/L (10-20); BUN (Urea Nitrogen) 20 mg/dL (8.4-25.7); Calc. Creatinine Clearance 50 mL/min (70-130); Carbon Dioxide 24 mmol/L (23-31); Cardiac Risk 3.6 (Less than 4.5); Chloride 105 mmol/L (98-107); Cholesterol 124 mg/dl (< 200 Desired); Estimated GFR-MDRD 60; Glucose 98 mg/dL (83-110); HDL Cholesterol 34 mg/dL (>60 Neg Risk); LDL Cholesterol, Calculated 69 mg/dL; Potassium 3.8 mmol/L (3.5-5.1); Sodium 138 mmol/L (136-145); Triglycerides 106 mg/dL (Less than 150)
[2019-01-25] MEDS: Benzonatate 100 MG CAP PO SCH ×3 (09:04→21:18)
[2019-01-25] MEDS: Amlodipine 10 MG TAB PO SCH (09:04)
[2019-01-25] MEDS: Famotidine/PF 20 mg/2ml Vial SLOW IVP SCH ×2 (09:04→21:19)
[2019-01-25] MEDS: Aspirin 325 mg Enteric Coated Tablet PO SCH (09:04)
[2019-01-25] MEDS: Guaifenesin DM 100-10/5 ML UDCUP PO PRN ×2 (09:45→15:55)
--- NOTE | 2019-01-25 11:14 | PDOC.PN ---
- Subjective Encounter Start Date: 01/25/19 Encounter Start Time: 11:13 Mr. Latham was seen today in follow-up of left tongue and facial weakness. His symptoms have completely resolved. - Objective MAR Reviewed: Yes Vital Signs & Weight: Vital Signs (12 hours) Temp Pulse Pulse Pulse Resp BP BP 01/25/19 10:26 76 80 133/60 138/63 01/25/19 09:04 76 01/25/19 08:00 97.7 F 76 16 01/25/19 06:18 67 16 01/25/19 04:00 98.1 F 64 16 01/25/19 00:33 76 16 BP Pulse Ox 01/25/19 10:26 01/25/19 09:04 01/25/19 08:00 131/62 95 01/25/19 06:18 94 L 01/25/19 04:00 123/62 94 L 01/25/19 00:33 96 Weight Weight 156 lb 4 oz Result Diagrams: 01/25/19 04:26 01/25/19 04:26 Additional Labs: Accuchecks 01/24/19 17:01 POC Glucose 116 H Phys Exam - Physical Examination HEENT: PERRLA Respiratory: no wheezing, no rales, no rhonchi, clear to auscultation bilateral Cardiovascular: RRR, no significant murmur, no rub Gastrointestinal: soft, non-tender, positive bowel sounds Musculoskeletal: no edema Neurological: non-focal Psychiatric: normal affect, A&O x 3 Dx/Plan (1) Transient ischemic attack Code(s): G45.9 - TRANSIENT CEREBRAL ISCHEMIC ATTACK, UNSPECIFIED Status: Acute (2) Dyslipidemia Code(s): E78.5 - HYPERLIPIDEMIA, UNSPECIFIED Status: Chronic (3) Hypertension Code(s): I10 - ESSENTIAL (PRIMARY) HYPERTENSION Status: Chronic - Plan * TIA- continue aspirin and statin therapy * MRI is pending * HTN- blood pressure is controlled * Dyslipidemia- his LDL is at goal * CTA- he has an area of calcification and plaque resulting in 70% stenosis of the right common carotid - will consult CV- surgery.
[2019-01-25] MEDS ORDERED: Chloraseptic Spray 180 ml Bottle PO PRN (11:18)
--- NOTE | 2019-01-25 12:50 | CON ---
DATE OF CONSULTATION: 01/24/2019 CONSULTING PHYSICIAN: Hospitalist Services. IMPRESSION: 1. Transient ischemic attack with transient left-sided numbness and dysarthria. 2. Right carotid stenosis of approximately 70%. Left carotid stenosis of approximately 40%. 3. Diabetes. 4. Hypertension. 5. Hyperlipidemia. PLAN: 1. Add aspirin. 2. Echocardiogram. 3. The patient can be discharged home this afternoon. 4. Outpatient followup to monitor his carotid disease. HISTORY OF PRESENT ILLNESS: Mr. Latham is an 78-year-old gentleman with a past history as noted above. He developed a numbness on the left side of his tongue and dysarthria. This was followed by some numbness in the left hand. The symptoms lasted approximately 30 minutes and then resolved spontaneously. He has not had anything like this in the past. He was not taking aspirin prior to admission. He came in and had a CT and CT angio, which showed the above noted findings. He denies any history of cardiac arrhythmia. He had a cardiac stress tests and EKG done last year, which were both unremarkable. PAST MEDICAL HISTORY: As listed above. ALLERGIES: HYDROCODONE. SOCIAL HISTORY: No tobacco or alcohol use. FAMILY HISTORY: Noncontributory. MEDICATIONS: Medication list was reviewed. . REVIEW OF SYSTEMS: A 10-system review of systems is otherwise negative. PHYSICAL EXAMINATION: GENERAL: He is a healthy-appearing elderly man, in no distress. VITAL SIGNS: Blood pressure 131/62, pulse 76, respirations 16, and temperature 97.7. HEENT: Pupils are equal and reactive. Conjunctivae clear. Oropharynx clear. NECK: Supple. No lymphadenopathy. EXTREMITIES: No cyanosis, clubbing, or edema. NEUROLOGIC: He was alert and oriented. His speech is fluent and clear. Cranial nerves are intact. Motor exam shows good strength bilaterally. There was no tremor or dysmetria present. Sensation was intact to touch. His gait is steady. No abnormal movements were seen. LABORATORY STUDIES: CBC, coags, and chemistry panel were unremarkable. His cardiac risk ratio was 3.6. SUMMARY: Elderly man with a transient ischemic event suggestive of small vessel disease. I agree with the current plan of workup and treatment. I would be happy to follow up with him as an outpatient. Job ID: [id number]
--- NOTE | 2019-01-25 14:06 | MRI ---
NONCONTRAST MRI BRAIN: Date: 01/25/19 HISTORY: Left-sided weakness. COMPARISON: Noncontrast CT head on 01/24/19. FINDINGS: There is a small punctate focus of restricted diffusion in the posterior aspect of the right occipita l lobe with an additional very small focus of restricted diffusion seen within the right parietal lob e suggesting tiny infarctions. No acute cortical infarction is identified. A few scattered punctate areas of increased FLAIR and T2-weighted signal intensity are seen in the gallo bcortical and periventricular white matter which are nonspecific but likely reflective of mild chroni c small vessel ischemic changes. The septum pellucidum and third ventricle are in the midline. Mild cerebral volume loss is present. T he ventricular system is normal in size, shape, and position for the degree of sulcal atrophy. Appropriate flow-voids are demonstrated at the base of the brain. Mucosal thickening is seen in the bilateral maxillary antra, as well as involving bilateral ethmoidal air cells. There is suggestion of sinus surgery involving the ethmoidal air cells bilaterally. Focus of increased T2-weighted signal intensity is seen in the region of the right mastoid air cells suggesting a tiny mastoid effusion. The orbits and skull base have a normal appearance. [place] on the lens is absent. IMPRESSION: 1. Tiny punctate acute infarctions within the right parietal and right occipital lobes as described above. 2. Chronic small vessel ischemic changes and cerebral volume loss. 3. Sinus disease. POS: [facility]
[2019-01-25] MEDS: Budesonide 0.5 MG/2 ML NEB INH SCH (18:07)
[2019-01-25] MEDS: Atorvastatin Calcium 40 MG TAB PO SCH (21:18)
--- NOTE | 2019-01-25 23:13 | CON ---
DATE OF CONSULTATION: HISTORY OF PRESENT ILLNESS: Mr. Latham is an 78-year-old gentleman, who was brought in by his son with the complaint of left tongue and face numbness, dysarthria, and left arm paralysis. All this symptomatology resolved on presentation to the ER. He has never had any sort of similar symptoms in the past. He has no history of cerebrovascular disease. He has no history of coronary artery disease. He has no history of abdominal aortic aneurysm. He has no history of peripheral vascular disease. He was recently diagnosed with bronchitis and 2 weeks ago, started on an unknown antibiotic for 4 days. He felt like he was initially getting better, but has started getting worse to where now he can hardly complete sentences while talking to me. He has never been on any aspirin or other anti-platelet agents. He is hypertensive and recently had his amlodipine increased to 10 mg daily. PAST MEDICAL HISTORY: 1. Hypertension. 2. Hypothyroidism. 3. Hypercholesterolemia. 4. Transient ischemic attack. PAST SURGICAL HISTORY: Laparotomy for perforated duodenal ulcer in the late . ALLERGIES: HYDROCODONE. CURRENT MEDICATIONS: At home: 1. Levothyroxine 25 mcg daily. 2. Enalapril 20 mg daily. 3. Amlodipine 10 mg daily. 4. Crestor unknown dose daily. 5. Albuterol inhaler 2 puffs p.r.n. 6. Nexium. SOCIAL HISTORY: He quit smoking in the late around the time of his perforated ulcer. He has not used alcohol or tobacco. He is retired from the [employer] business. He is accompanied by his stepdaughter and stepson. REVIEW OF SYSTEMS: A 10-point review of systems is performed and is negative except as above. PHYSICAL EXAMINATION: GENERAL: Mr. Latham is a delightful 78-year-old gentleman, resting comfortably on the stroke unit. VITAL SIGNS: His height is 5 feet 6 inches, weight is 156 pounds. BSA is 1.82. Temperature is 97.7, pulse is 85 and regular, blood pressure is 150/67. HEENT: He has no adenopathy in his neck. He has so much wheezing and pulmonary noise. I cannot auscultate either side of his neck for bruit. LUNGS: He has bilateral wheezing and rhonchi. HEART: Rhythm is regular. ABDOMEN: Soft and nontender. EXTREMITIES: No edema. VASCULAR: Palpable carotid, radial, femoral, dorsalis pedis and posterior tibial pulses bilaterally. PSYCHIATRIC: He is awake, alert, and oriented to person, place, and time. RADIOLOGY: MRI of the brain shows punctate infarcts in his right brain. CT angiogram of his neck shows that he has at the origin of the internal carotid artery about an 80% short-segment stenosis that is calcified. On the left, he has about 50% short-segment stenosis which is calcified. ASSESSMENT AND PLAN: Symptomatic right carotid disease. I would like to get his lungs improved prior to carotid endarterectomy. I think this should be performed here in the hospital before he is discharged and he needs to stay for treatment of his lungs prior to surgical intervention. I have added inhaled steroid, EzPAP, DuoNeb, and Levaquin to his medical regimen in hopes of clearing his lungs over the next 2 to 3 days, then we can get his carotids clean. Job ID: [id number]
[2019-01-26] MEDS: Guaifenesin DM 100-10/5 ML UDCUP PO PRN ×2 (03:40→14:17)
[2019-01-26] MEDS: Levothyroxine Sodium 25 MCG TAB PO SCH (06:11)
[2019-01-26] MEDS: Sodium Chloride 0.9% 1,000 ML IV SCH ×2 (06:11→21:20)
[2019-01-26] MEDS: Budesonide 0.5 MG/2 ML NEB INH SCH ×2 (06:51→18:32)
[2019-01-26] MEDS: Amlodipine 10 MG TAB PO SCH (08:22)
[2019-01-26] MEDS: Aspirin 325 mg Enteric Coated Tablet PO SCH (08:22)
[2019-01-26] MEDS: Benzonatate 100 MG CAP PO SCH ×3 (08:22→21:21)
[2019-01-26] MEDS: Famotidine/PF 20 mg/2ml Vial SLOW IVP SCH (08:23)
--- NOTE | 2019-01-26 08:36 | RAD ---
TWO VIEWS OF THE CHEST: COMPARISON: None. HISTORY: Cough. FINDINGS: Two views of the chest show normal sized cardiomediastinal silhouette. There is no evidence of consol idation, mass, or pleural effusion. Hardware is seen in the cervical spine. IMPRESSION: No evidence of acute cardiopulmonary disease. POS: [facility]
--- NOTE | 2019-01-26 09:27 | PDOC.PN ---
- Subjective Encounter Start Date: 01/26/19 Encounter Start Time: 11:50 Subjective: No further weakness on left. Cough bad all night, but improved -: with medication this morning. Wheezing improved. - Objective MAR Reviewed: Yes Vital Signs & Weight: Vital Signs (12 hours) Temp Pulse Resp BP Pulse Ox 01/26/19 08:22 75 01/26/19 07:00 97.7 F 75 16 140/63 100 01/26/19 06:51 79 16 96 01/26/19 03:35 98.8 F 78 16 129/60 95 01/26/19 00:00 98 F 77 16 124/59 L 94 L 01/25/19 23:55 78 16 95 Weight Weight 156 lb 4 oz I&O: 01/25/19 01/26/19 01/27/19 06:59 06:59 06:59 Intake Total 1300 Balance 1300 Result Diagrams: 01/25/19 04:26 01/25/19 04:26 Phys Exam - Physical Examination Constitutional: NAD HEENT: moist MMs Respiratory: no rales, no rhonchi occ wheeze, good air movement throughout Cardiovascular: RRR, no significant murmur Gastrointestinal: soft, positive bowel sounds Musculoskeletal: no edema, pulses present Neurological: non-focal, moves all 4 limbs Psychiatric: normal affect, A&O x 3 Dx/Plan (1) Acute ischemic stroke Code(s): I63.9 - CEREBRAL INFARCTION, UNSPECIFIED Status: Acute Comment: tiny punctate infarctions in right parietal and occipital lobes, on ASA, Statin (2) Bronchitis Code(s): J40 - BRONCHITIS, NOT SPECIFIED ACUTE OR CHRONIC Status: Acute Comment: S/p steroids and antibioitics as outpatient, started on inhaled steroids, duo nebs, and Levaquin by Dr. Fiore in preparation for CEA surgery, (3) Dyslipidemia Code(s): E78.5 - HYPERLIPIDEMIA, UNSPECIFIED Status: Chronic (4) GERD (gastroesophageal reflux disease) Code(s): K21.9 - GASTRO-ESOPHAGEAL REFLUX DISEASE WITHOUT ESOPHAGITIS Status: Chronic Comment: home PPI (5) Hypertension Code(s): I10 - ESSENTIAL (PRIMARY) HYPERTENSION Status: Chronic (6) Hypothyroidism Code(s): E03.9 - HYPOTHYROIDISM, UNSPECIFIED Status: Chronic Comment: continue home levothyroxine - Plan cont current plan of care, continue antibiotics, PT/OT, DVT proph w/SCDs Possibly surgery on Saturday. * . - Discharge Day Encounter end time: 12:00
[2019-01-26] MEDS: Atorvastatin Calcium 40 MG TAB PO SCH (21:20)
[2019-01-26] MEDS: Temazepam 15 MG CAP PO PRN (21:20)
[2019-01-27] MEDS: Budesonide 0.5 MG/2 ML NEB INH SCH ×2 (07:33→18:42)
[2019-01-27] MEDS: Levothyroxine Sodium 25 MCG TAB PO SCH (07:54)
--- NOTE | 2019-01-27 08:11 | PDOC.PN ---
- Subjective Encounter Start Date: 01/27/19 Encounter Start Time: 09:40 Subjective: Patient reports cough markedly improved. No SOB. No chest pain. -: No more neuro symptoms. - Objective MAR Reviewed: Yes Vital Signs & Weight: Vital Signs (12 hours) Temp Pulse Resp BP Pulse Ox 01/27/19 07:44 98.1 F 76 16 144/65 H 94 L 01/27/19 07:33 80 14 01/27/19 04:00 97.8 F 79 18 117/56 L 93 L 01/27/19 00:24 87 20 96 01/27/19 00:00 98.0 F 83 19 121/63 94 L 01/26/19 20:30 96 Weight Weight 156 lb 4 oz I&O: 01/26/19 01/27/19 01/28/19 06:59 06:59 06:59 Intake Total 1300 Balance 1300 Result Diagrams: 01/25/19 04:26 01/25/19 04:26 Phys Exam - Physical Examination Constitutional: NAD HEENT: moist MMs Respiratory: no wheezing, no rales, no rhonchi Cardiovascular: RRR, no significant murmur Gastrointestinal: soft Neurological: non-focal, moves all 4 limbs Psychiatric: normal affect, A&O x 3 Dx/Plan (1) Acute ischemic stroke Code(s): I63.9 - CEREBRAL INFARCTION, UNSPECIFIED Status: Acute Comment: tiny punctate infarctions in right parietal and occipital lobes, on ASA, Statin (2) Bronchitis Code(s): J40 - BRONCHITIS, NOT SPECIFIED ACUTE OR CHRONIC Status: Acute Comment: S/p steroids and antibioitics as outpatient, started on inhaled steroids, duo nebs, and Levaquin by Dr. 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 - Discharge Day Encounter end time: 09:50
[2019-01-27] MEDS: Aspirin 325 mg Enteric Coated Tablet PO SCH (08:48)
[2019-01-27] MEDS: Amlodipine 10 MG TAB PO SCH (08:48)
[2019-01-27] MEDS: Benzonatate 100 MG CAP PO SCH ×3 (08:49→20:09)
[2019-01-27] MEDS ORDERED: ESOMEPRAZOLE MAGNESIUM 40 MG PO SCH (09:00)
[2019-01-27] MEDS: Sodium Chloride 0.9% 1,000 ML IV SCH (13:06)
[2019-01-27] MEDS: Artificial Tear Sol 15 ML BOT EA EYE PRN ×2 (18:38→20:09)
[2019-01-27] MEDS: Atorvastatin Calcium 40 MG TAB PO SCH (20:09)
[2019-01-27 21:06] LABS: Troponin I Less than 0.010 ng/mL (< 0.028)
[2019-01-27 23:46] LABS: Troponin I Less than 0.010 ng/mL (< 0.028)
[2019-01-28 05:04] LABS: #Basophils 0.1 thou/uL (0.0-0.2); #Eosinphils 1.4 thou/uL (0.0-0.7); #Lymphocytes 2.2 thou/uL (1.20-3.40); #Monocytes 0.8 thou/uL (0.11-0.59); %Basophils 0.5 % (0.0-1.0); %Eosinophils 13.6 % (0.0-10.0); %Lymphocytes 21.2 % (21.0-51.0); %Monocytes 7.4 % (0.0-10.0); %Neutrophils 57.3 % (42.0-75.0); Hemoglobin 13.2 g/dL (14.0-18.0); Mean Corpuscular HGB CONC 33.4 g/dL (32.0-36.0); Mean Corpuscular Hemoglobin 31.6 pg (27.0-31.0); Mean Corpuscular Volume 94.5 fL (78.0-98.0); Platelet Count 330 thou/uL (130-400); RBC Distribution Width 11.8 % (11.5-14.5); Red Blood Cell (RBC) Count 4.17 mill/uL (4.70-6.10); White Blood Cell (WBC) Count 10.5 thou/uL (4.8-10.8)
[2019-01-28] MEDS: Sodium Chloride 0.9% 1,000 ML IV SCH ×5 (05:13→21:52)
[2019-01-28] MEDS: Levothyroxine Sodium 25 MCG TAB PO SCH (05:24)
[2019-01-28 05:25] LABS: Anion Gap 14 mmol/L (10-20); BUN (Urea Nitrogen) 10 mg/dL (8.4-25.7); Calc. Creatinine Clearance 52 mL/min (70-130); Calcium 9.6 mg/dL (7.8-10.44); Carbon Dioxide 23 mmol/L (23-31); Chloride 107 mmol/L (98-107); Estimated GFR-MDRD 62; Glucose 113 mg/dL (83-110); Potassium 4.1 mmol/L (3.5-5.1); Sodium 140 mmol/L (136-145)
[2019-01-28] MEDS ORDERED: Heparin 5,000 UNITS/ML VIAL ONE (06:49)
[2019-01-28] MEDS ORDERED: Protamine Sulfate 50 MG/5 ML VIAL ONE (06:49)
[2019-01-28] MEDS: Budesonide 0.5 MG/2 ML NEB INH SCH ×2 (06:52→19:03)
[2019-01-28] MEDS ORDERED: Fentanyl 100 MCG/2 ML VIAL ONE (07:10)
[2019-01-28] MEDS ORDERED: CEFAZOLIN 2 GM in Premix Bag 1 BAG IVPB SCH (07:30)
[2019-01-28] MEDS ORDERED: Bupivacaine HCl 0.5%/Epinephrine 1:200,000/PF 30 ml Vial ONE (08:46)
[2019-01-28] MEDS ORDERED: Promethazine HCl 25 MG/ML VIAL IM PRN (09:58)
[2019-01-28] MEDS ORDERED: Nitroglycerin 50 MG/250 ML BOT 250 ML IVPB PRN (09:58)
[2019-01-28] MEDS ORDERED: hydrALAZINE 20 MG/ML VIAL SLOW IVP PRN (09:58)
[2019-01-28] MEDS ORDERED: Fentanyl 100 MCG/2 ML VIAL SLOW IVP PRN ×2 (09:58)
[2019-01-28] MEDS ORDERED: Phenylephrine 10 MG/NS 250 ML 250 ML IVPB PRN (09:58)
[2019-01-28] MEDS ORDERED: Acetaminophen 325 MG TAB PO PRN (09:58)
--- NOTE | 2019-01-28 10:15 | PDOC.PN ---
- Subjective Encounter Start Date: 01/28/19 Encounter Start Time: 16:25 Subjective: Patient feeling well after surgery, still with cough productive of some -: left chest pain but much better. No numbness, tingling, focal weakness -: after the surgery. - Objective MAR Reviewed: Yes Vital Signs & Weight: Vital Signs (12 hours) Temp Pulse Resp BP Pulse Ox 01/28/19 06:52 80 15 01/28/19 03:59 98.2 F 107 H 19 123/52 L 95 01/28/19 00:31 81 24 H 94 L 01/28/19 00:00 97.9 F 81 19 147/67 H 94 L Weight Weight 156 lb 4 oz I&O: 01/27/19 01/28/19 01/29/19 06:59 06:59 06:59 Intake Total 1620 Output Total 200 Balance 1420 Result Diagrams: 01/28/19 04:15 01/28/19 04:15 Phys Exam - Physical Examination Constitutional: NAD HEENT: moist MMs Right CEA incision well closed, no sweling or drainage Respiratory: no wheezing, no rales, no rhonchi mild TTP anterior left chest wall reproduces pain Cardiovascular: RRR, no significant murmur Gastrointestinal: soft, positive bowel sounds Neurological: non-focal, moves all 4 limbs Psychiatric: normal affect, A&O x 3 Dx/Plan (1) Acute ischemic stroke Code(s): I63.9 - CEREBRAL INFARCTION, UNSPECIFIED Status: Acute Comment: tiny punctate infarctions in right parietal and occipital lobes, on ASA, Statin (2) Bronchitis Code(s): J40 - BRONCHITIS, NOT SPECIFIED ACUTE OR CHRONIC Status: Acute Comment: S/p steroids and antibioitics as outpatient, started on inhaled steroids, duo nebs, and Levaquin by Dr. 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 - Discharge Day Encounter end time: 16:35
--- NOTE | 2019-01-28 10:32 | OP ---
DATE OF PROCEDURE: 01/28/2019 PREOPERATIVE DIAGNOSIS: Symptomatic right carotid stenosis. POSTOPERATIVE DIAGNOSIS: Symptomatic right carotid stenosis. PROCEDURES PERFORMED: Right carotid endarterectomy with patch angioplasty. ANESTHESIA: General endotracheal. ESTIMATED BLOOD LOSS: Less than 50. SPECIMENS: None. DESCRIPTION OF PROCEDURE: After consent was obtained, patient brought to the operating room and placed supine position on the operating table. Appropriate lines and monitors were placed, and general anesthesia was induced. The head was rotated to the left and extended. Joints were appropriately supported. The right neck was prepped and draped in usual sterile fashion. A skin incision was made over the anterior border of the sternocleidomastoid. Platysma was incised with electrocautery. Sternocleidomastoid was mobilized. Carotid sheath was entered. Common internal and external carotid arteries were carefully exposed. The plaque extended high onto the internal carotid artery. The artery and vein to the sternocleidomastoid were divided between ties and clips. The hypoglossal nerve was mobilized and protected throughout. Once we obtained control of the internal carotid artery distal to the plaque, the patient was given 7500 units of heparin. After 3 minutes, internal common and external carotid arteries were serially clamped. Incision was made on the common carotid artery extending through the bulb on the internal carotid artery distal to plaque. A 10-Yi [place] shunt was placed and antegrade flow reestablished. There was significant soft debris within the carotid bulb and the internal carotid artery. Endarterectomy was performed through the media of the artery. A good tapered distal endpoint was obtained on the internal carotid artery. An eversion endarterectomy was performed on the external carotid artery. Medial fibers were debrided. Artery was flushed with heparinized saline. A bovine pericardial patch was sewn in place with running 6-0 Prolene suture. Prior to completion of the suture line, the shunt was clamped and removed. The arteries were back bled and flushed with heparinized saline. The patch suture line was completed and antegrade flow re-established up the external carotid artery. After 10 seconds, internal carotid artery flow was reestablished. A 50 mg of protamine was given. Hemostasis was ensured. Wounds were copiously irrigated, closed in layers and Dermabond applied to the skin. The patient was awakened and neurologically intact in the operating room after the procedure. Needle, sponge and instruments counts were all reported as correct at the end of the procedure. Job ID: [id number]
[2019-01-28] MEDS: Aspirin 325 mg Enteric Coated Tablet PO SCH (11:12)
[2019-01-28] MEDS: Benzonatate 100 MG CAP PO SCH ×3 (11:12→20:31)
[2019-01-28] MEDS: Amlodipine 10 MG TAB PO SCH (11:12)
[2019-01-28 11:13] VITALS: BP 138/65
[2019-01-28] MEDS ORDERED: Glycopyrrolate 0.2 MG/ML 5 ML SYRINGE ONE (13:48)
[2019-01-28] MEDS ORDERED: Rocuronium Bromide 10 MG/ML (10ML VIAL) ONE (13:48)
[2019-01-28] MEDS ORDERED: Lidocaine 1% PF 5 ML VIAL ONE (13:48)
[2019-01-28] MEDS ORDERED: PROPOFOL 200 MG/20 ML VIAL ONE (13:48)
[2019-01-28] MEDS: CEFAZOLIN 2 GM in Premix Bag 1 BAG IVPB SCH ×2 (15:43→21:10)
--- NOTE | 2019-01-28 17:05 | EKG ---
Test Reason : Blood Pressure : / mmHG Vent. Rate : 076 BPM Atrial Rate : 076 BPM P-R Int : 140 ms QRS Dur : 094 ms QT Int : 410 ms P-R-T Axes : 054 057 078 degrees QTc Int : 461 ms Normal sinus rhythm with sinus arrhythmia RSR' or QR pattern in V1 suggests right ventricular conduction delay Borderline ECG Confirmed by CHANDNI HORTON ([id number]) on 01/28/2019 5:05:19 PM Referred By: Confirmed By:CHANDNI HORTON
[2019-01-28] MEDS: Atorvastatin Calcium 40 MG TAB PO SCH (20:31)
[2019-01-28] MEDS: Temazepam 15 MG CAP PO PRN (22:02)
[2019-01-29] MEDS: Guaifenesin DM 100-10/5 ML UDCUP PO PRN (01:34)
[2019-01-29] MEDS: Levothyroxine Sodium 25 MCG TAB PO SCH (05:03)
[2019-01-29] MEDS: CEFAZOLIN 2 GM in Premix Bag 1 BAG IVPB SCH (05:03)
[2019-01-29] MEDS: Budesonide 0.5 MG/2 ML NEB INH SCH (06:41)
[2019-01-29 08:08] VITALS: TEMP 97.8
[2019-01-29] MEDS: Aspirin 325 mg Enteric Coated Tablet PO SCH (08:55)
[2019-01-29] MEDS: Amlodipine 10 MG TAB PO SCH (08:55)
[2019-01-29] MEDS: Benzonatate 100 MG CAP PO SCH (08:56)
--- NOTE | 2019-01-29 09:34 | PDOC.PN ---
- Subjective Encounter Start Date: 01/29/19 Encounter Start Time: 09:25 Subjective: Patient feeling well. Cough and SOB markedly improved. Ambulating -: well. Ready to go home. Dr. Fiore has already seen him and put in d/c -: orders. - Objective Vital Signs & Weight: Vital Signs (12 hours) Temp Pulse Resp BP Pulse Ox 01/29/19 08:57 138/65 01/29/19 08:55 85 131/66 01/29/19 07:34 95 01/29/19 07:00 97.8 F 01/29/19 06:41 99 01/29/19 06:39 65 16 99 01/29/19 04:00 98.5 F 01/29/19 00:00 98.6 F Weight Weight 156 lb 4 oz Most Recent Monitor Data Heart Rate from ECG 76 NIBP 122/55 NIBP BP-Mean 77 Respiration from ECG 21 SpO2 98 I&O: 01/28/19 01/29/19 01/30/19 06:59 06:59 06:59 Intake Total 1620 1946 220 Output Total 200 1045 100 Balance 1420 901 120 Result Diagrams: 01/28/19 04:15 01/28/19 04:15 Phys Exam - Physical Examination Constitutional: NAD HEENT: moist MMs Respiratory: no wheezing, no rales, no rhonchi, clear to auscultation bilateral Cardiovascular: RRR, no significant murmur Gastrointestinal: soft, positive bowel sounds Neurological: non-focal, moves all 4 limbs Psychiatric: normal affect, A&O x 3 Dx/Plan (1) Acute ischemic stroke Code(s): I63.9 - CEREBRAL INFARCTION, UNSPECIFIED Status: Acute Comment: tiny punctate infarctions in right parietal and occipital lobes, on ASA, Statin (2) Bronchitis Code(s): J40 - BRONCHITIS, NOT SPECIFIED ACUTE OR CHRONIC Status: Acute Comment: S/p steroids and antibioitics as outpatient, started on inhaled steroids, duo nebs, and Levaquin by Dr. 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 - Discharge Day Encounter end time: 09:30
--- NOTE | 2019-01-29 09:35 | PQF ---
ALONSO JOYNER RYAN ANDREW MD [id number] CLINICAL DOCUMENTATION IMPROVEMENT CLARIFICATION FORM: ICD-10 Updated PLEASE DO AN ADDENDUM TO THE PROGRESS NOTE WITH ANY DOCUMENTATION UPDATES OR ADDITIONS AND CARRY THROUGH TO DC SUMMARY. THANK YOU. DATE: 01/29/19 ATTN:DR. Pratibha CRESPO Please exercise your independent, professional judgment in responding to the clarification form. Clinical indicators are provided on the bottom of this form for your review. Please check appropriate box(s): [ ] Acute Renal Failure (ARF) / Acute Kidney Injury (KO) [ X ] Acute on Chronic Renal Failure please specify Stage of CKD ____2____ (see below) [ ] CKD without ARF/KO please specify Stage of CKD [ ] Other diagnosis [ ] Unable to determine In addition, please specify: Present on Admission (POA): [ X ] Yes [ ] No [ ] Unable to determine National Kidney Foundation Guidelines for CKD Staging Stage I Kidney damage with normal or increased GFR `GFR > 90 Stage II Kidney damage with mildly decreased GFR `GFR 60-89 Stage III Kidney damage with moderately decreased GFR GFR 30-59 Stage IV Kidney damage with severely decreased GFR GFR 16-29 Stage V Kidney failure ` GFR<15 ESRD End Stage Renal Disease ` `On dialysis For continuity of documentation, please document condition throughout progress notes and discharge summary. Thank You. CLINICAL INDICATORS - SIGNS / SYMPTOMS / LABS BUN 3/2 23 CR 3/2 1.52 GFR 3/2 44 3/3 20 3/3 1.17 3/3 60 3/6 10 3/6 1.14 3/6 62 RISK HTN ACUTE ISCHEMIC STROKE TREATMENT IVF (NS /- PRESENT) SERIAL BASMET (32-01/28) THANK YOU ! ENRRIQUE (This form is maintained as a part of the permanent medical record) 2014 [email or web address]. All Rights Reserved [email or web address] [phone] [email or web address]
--- NOTE | 2019-01-29 10:54 | DIS ---
DATE OF ADMISSION: 01/24/2019 DATE OF DISCHARGE: 01/29/2019 DIAGNOSIS: Symptomatic right carotid stenosis presenting as a transient ischemic attack affecting his left face and speech. PROCEDURE PERFORMED: Right carotid endarterectomy with patch angioplasty. DESCRIPTION OF HOSPITAL STAY: Mr. Latham was admitted with TIA. Workup included MRI of the brain, which showed multiple punctate lesions in his right brain. He also had a CT angiogram of his neck showing a greater than 70% calcified and soft plaque in the right carotid system greater than 70%. The left carotid was reported as 50% lesion, but also has some areas, which may be tighter than this. He was allowed to recover from his TIA. He also presented with bronchitis that had been ongoing. He was placed on Pulmicort, DuoNeb, and Levaquin. Once his pulmonary status cleared, he underwent right carotid endarterectomy. He has done well postoperatively and is being discharged to home today. DISCHARGE MEDICATIONS: Include; 1. Aspirin 325 mg daily. 2. Norvasc 10 mg daily. 3. Enalapril 20 mg daily. 4. Levothyroxine 25 mcg daily. 5. Aspirin 325 mg daily. 6. Tessalon Perles 100 mg t.i.d. 7. Pulmicort 180 two puffs b.i.d. 8. Combivent MDI one puff b.i.d. 9. Levaquin 750 one p.o. daily for 14 days. FOLLOWUP: Followup is with me in 2 weeks. Job ID: [id number]
--- NOTE | 2019-01-30 03:46 | DIS ---
DATE OF ADMISSION: 01/24/2019 DATE OF DISCHARGE: 01/29/2019 PRIMARY CARE PHYSICIAN: Lydia Hatfield MD REASON FOR ADMISSION: TIA/stroke. DIAGNOSES AT DISCHARGE: 1. Acute ischemic stroke, with most symptoms resolved. 2. Acute bronchitis. 3. Severe stenosis of the right carotid artery, status post carotid endarterectomy. 4. Dyslipidemia. 5. Hypertension. 6. Gastroesophageal reflux disease. 7. Hypothyroidism. PROCEDURES: 1. CT of the [place] angio with carotids showing common carotid artery with atherosclerotic calcifications and ICA approximately 40% stenosed, right carotid artery with distal 70% stenosis and bilateral origin vertebral artery calcification. 2. CT of the brain without contrast showing no acute abnormalities. 3. MRI of the brain showing tiny punctate acute infarctions within the right parietal and right occipital lobe and chronic small-vessel ischemic changes. 4. Echocardiogram showing ejection fraction of 50% to 55%. and diastolic dysfunction. 5. Right carotid endarterectomy. CONSULTATIONS: 1. Neurology, Dr. Perez. 2. Vascular Surgery, Dr. Fiore. SUMMARY OF HOSPITAL COURSE: This is an 78-year-old white male with a history of left tongue numbness and then numbness along the left side of his face, pain in his left neck and weakness in his left arm and leg, came into the emergency room and was given aspirin. He had resolution of his symptoms, treated as a TIA versus stroke. The patient had also been having some bronchitis symptoms, treated outpatient with some cough suppressants and antibiotics but did not improve. He was admitted to the hospital. CTA and MRI were done as above. Dr. Fiore was consulted. He recommended carotid endarterectomy and started the patient on inhalers and antibiotics to try and improve his bronchitis prior to the surgery. The patient's cough improved during his hospitalization. He had a CEA done yesterday. He is recovering well today and is cleared for discharge by Dr. Fiore. DISCHARGE MANAGEMENT: Discharged home. FOLLOWUP: Follow up with primary care provider as needed and with Dr. Fiore in 14 days. ACTIVITY: As tolerated. DIET: Healthy heart diet. MEDICATIONS: 1. Aspirin 325 mg daily, 120 tablets dispensed. 2. Tessalon Perles as needed. 3. Sennosides 2 tabs at night as needed for constipation. 4. Continue amlodipine 10 mg daily. 5. Enalapril 20 mg daily. 6. Nexium 40 mg daily. 7. Levothyroxine 25 mcg daily. Job ID: [id number]
--- NOTE | 2019-01-31 22:15 | EKG ---
Test Reason : Blood Pressure : / mmHG Vent. Rate : 083 BPM Atrial Rate : 083 BPM P-R Int : 140 ms QRS Dur : 092 ms QT Int : 370 ms P-R-T Axes : 029 045 077 degrees QTc Int : 434 ms Normal sinus rhythm Incomplete right bundle branch block Borderline ECG Confirmed by AMY MOSS, ELMA ([id number]), electronic news gathering editor SIMON SINGLETARY ([id number]) on 01/31/2019 10:15:11 PM Referred By: Confirmed By:ELMA REYES MD
== END 2019-01-29 09:35 | disposition home or self-care (01) | DRG 38 ==
LOC: ERS 16:46 → 2SE 18:15 → CCU 01-28 08:09
PROVIDERS: ADMIT Internal Medicine; ATTEND Internal Medicine
PROC: 03CK0ZZ Extirpation of Matter from Right Internal Carotid Artery, Open Approach (ICD-10-PCS; principal; 2019-01-24)
PROC: 03UK0JZ Supplement Right Internal Carotid Artery with Synthetic Substitute, Open Approach (ICD-10-PCS; 2019-01-24)
DX: I63.9 Cerebral infarction, unspecified (principal); N17.9 Acute kidney failure, unspecified; I12.9 Hypertensive chronic kidney disease with stage 1 through stage 4 chronic kidney disease, or unspecified chronic kidney disease; N18.2 Chronic kidney disease, stage 2 (mild); I65.21 Occlusion and stenosis of right carotid artery; R47.81 Slurred speech; E78.5 Hyperlipidemia, unspecified; E03.9 Hypothyroidism, unspecified; H91.92 Unspecified hearing loss, left ear; J20.9 Acute bronchitis, unspecified; K21.9 Gastro-esophageal reflux disease without esophagitis; R40.2142 Coma scale, eyes open, spontaneous, at arrival to emergency department; R40.2362 Coma scale, best motor response, obeys commands, at arrival to emergency department; R40.2252 Coma scale, best verbal response, oriented, at arrival to emergency department; Z86.010 Personal history of colon polyps; Z87.11 Personal history of peptic ulcer disease; Z79.899 Other long term (current) drug therapy; Z79.51 Long term (current) use of inhaled steroids; Z87.891 Personal history of nicotine dependence
CPT/HCPCS: 36415; 36416; 70450; 70496; 70498; 70551; 71045; 71046; 80048; 80053; 80061; 82550; 83605; 83880; 84145; 84484; 85025; 85610; 85730; 86850; 86900; 86901; 93005; 93010; 93306; 94640; J0670; J1642; J1644; J1956; J2001; J2704; J2720; J3010; J7620; J7626; Q9966; S0028

== ENCOUNTER 2019-02-18 10:08 | Outpatient (CLI) | payer MEDICARE, OTHER ==
--- NOTE | 2019-02-18 10:46 | RAD ---
FRadiograph left shoulder 3 views: 02/18/2019 HISTORY: 78-year-old male with nontraumatic left shoulder pain. FINDINGS: There are mixed sclerotic and osteolytic changes involving the lateral aspect of the scapula, includi ng the glenoid, coracoid process, and possibly the distal portion of the acromion. There is joint spa ce narrowing of the AC joint with mild osteophytosis. There are [id number] degenerative changes at the glenohumeral joint. Humeral head demonstrates no major pathology other than osteopenia. No fr acture or dislocation. 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
== END 2019-02-18 10:09 | disposition home or self-care (01) ==
LOC: BICRAD 10:08
PROVIDERS: ATTEND Physician Assistant
DX: J20.9 Acute bronchitis, unspecified (principal)

== ENCOUNTER 2019-03-05 09:57 | Outpatient (CLI) | payer MEDICARE ==
--- NOTE | 2019-03-05 10:19 | RAD ---
EXAM: Chest 2 views: HISTORY: Wheezing COMPARISON: 01/26/2019 FINDINGS: There is a normal-sized cardiomediastinal silhouette. There is no evidence of consolidation, mass, or pleural effusion. Atherosclerotic ulcerations are seen in the aorta. Hardware is seen in the cervica l spine. Degenerative changes are seen in the spine. IMPRESSION: No evidence of acute cardiopulmonary disease
== END 2019-03-05 09:58 | disposition home or self-care (01) ==
LOC: BICRAD 09:57
PROVIDERS: ATTEND Internal Medicine
DX: R06.2 Wheezing (principal); R05 Cough
CPT/HCPCS: 71046

== ENCOUNTER 2019-03-18 12:47 | Outpatient (CLI) | payer MEDICARE ==
--- NOTE | 2019-03-18 13:11 | RAD ---
CHEST TWO VIEWS: INDICATIONS: Cough. COMPARISON: 03/05/2019 FINDINGS: There is no consolidation, effusion, or pneumothorax. The cardiac silhouette is of normal size. Oss eous degenerative change is present. IMPRESSION: No focal consolidation. POS: C
== END 2019-03-18 12:48 | disposition home or self-care (01) ==
LOC: BICRAD 12:47
PROVIDERS: ATTEND Internal Medicine
DX: R05 Cough (principal)
CPT/HCPCS: 36415; 71046; 80048; 85025

== ENCOUNTER 2019-03-28 20:56 | Emergency (ER) | payer MEDICARE ==
--- NOTE | 2019-03-28 22:31 | CT ---
Chest CT without contrast 03/28/2019 COMPARISON: None HISTORY: Fall, trauma, pain TECHNIQUE: Axial CT imaging at 5 mm intervals through the chest without contrast. Coronal and sagitta l reformatted imaging obtained. FINDINGS: The lack of contrast media limits assessment of the imaged viscera, vascular structures, an d for lymphadenopathy. The imaged upper abdomen demonstrates no acute findings. Lobulated hepatic cyst near the liver dome n oted, measuring 3.9 cm. No pleural, pericardial, or mediastinal fluid. There is vascular calcification of the coronary arteries and the aortic arch, descending thoracic aorta, and imaged abd ominal aorta. No pneumothorax noted on either side. No endobronchial lesion. No significant pulmonary parenchymal mass lesion or nodule noted. Granulomatous calcifications are no marcio within the right lung. No acute osseous abnormality is noted. IMPRESSION: No acute findings.
== END 2019-03-28 23:35 | disposition home or self-care (01) ==
LOC: ERS 20:56
DX: S20.212A Contusion of left front wall of thorax, initial encounter (principal); I10 Essential (primary) hypertension; K21.9 Gastro-esophageal reflux disease without esophagitis; E11.9 Type 2 diabetes mellitus without complications; E78.00 Pure hypercholesterolemia, unspecified; Z79.899 Other long term (current) drug therapy; Z79.51 Long term (current) use of inhaled steroids; W19.XXXA Unspecified fall, initial encounter
CPT/HCPCS: 71250

== ENCOUNTER 2019-05-26 11:08 | Outpatient (CLI) | payer MEDICARE ==
--- NOTE | 2019-05-26 11:32 | RAD ---
RADIOGRAPH CHEST 2 VIEWS: DATE: 05/26/2019 HISTORY: Wheezing FINDINGS: There is no airspace density, pulmonary edema, pleural effusion, pneumothorax, or cardiomegaly. IMPRESSION: No acute cardiopulmonary findings.
--- NOTE | 2019-05-26 11:33 | RAD ---
Radiograph left RIBS 3 views: HISTORY: 78-year-old male with left rib pain FINDINGS: There is a nondisplaced left distal 10th rib fracture that appears to be recent. IMPRESSION: Nondisplaced, recent left anterolateral 10th rib fracture.
--- NOTE | 2019-05-26 11:34 | RAD ---
Radiograph right ribs 3 views: HISTORY: Right rib pain FINDINGS: Mild old rib fracture deformity angulation of anterolateral aspect of right fifth rib. No definite di splaced acute right rib fracture identified. IMPRESSION: No right rib fracture identified.
== END 2019-05-26 11:09 | disposition home or self-care (01) ==
LOC: BICRAD 11:08
PROVIDERS: ATTEND Internal Medicine
DX: R07.81 Pleurodynia (principal); R06.2 Wheezing; S22.32XA Fracture of one rib, left side, initial encounter for closed fracture
CPT/HCPCS: 71046

== ENCOUNTER 2019-11-13 09:45 | Outpatient (CLI) | payer MEDICARE, OTHER ==
--- NOTE | 2019-11-13 10:02 | RAD ---
EXAM: XR Chest Pa Lat @ POB PROVIDED CLINICAL HISTORY: Dyspnea COMPARISON: 05/26/2019 FINDINGS: Cardiac and mediastinal silhouette is within normal limits. Vascular calcification is noted involving the aortic arch. No focal consolidation, pleural fluid or pneumothorax apparent. IMPRESSION: No evidence for an acute cardiopulmonary process.
== END 2019-11-13 09:46 | disposition home or self-care (01) ==
LOC: RAD 09:45
PROVIDERS: ATTEND Internal Medicine Pulmonary Disease
DX: R06.00 Dyspnea, unspecified (principal)
CPT/HCPCS: 71046

== ENCOUNTER 2021-02-03 09:52 | Outpatient (CLI) | payer MEDICARE, OTHER | END 2021-02-03 09:53 | disposition home or self-care (01) | LOC: BICRAD 09:52 | PROVIDERS: ATTEND Internal Medicine | DX: M79.672 Pain in left foot (principal) ==

== ENCOUNTER 2021-04-05 10:50 | Outpatient (CLI) | payer MEDICARE, OTHER | END 2021-04-05 10:51 | disposition home or self-care (01) | LOC: BICRAD 10:50 | PROVIDERS: ATTEND Internal Medicine | DX: M25.511 Pain in right shoulder (principal); M25.512 Pain in left shoulder; M19.011 Primary osteoarthritis, right shoulder ==

== ENCOUNTER 2021-11-16 17:54 | Outpatient (CLI) | payer MEDICARE, OTHER | END 2021-11-16 17:55 | disposition home or self-care (01) | LOC: SCSRAD 17:54 | PROVIDERS: ATTEND Internal Medicine | DX: R05.9 Cough, unspecified (principal) | CPT/HCPCS: 71046 ==

== ENCOUNTER 2022-07-12 11:09 | Outpatient (CLI) | payer OTHER | END 2022-07-12 11:10 | disposition home or self-care (01) | LOC: ULT 11:09 | PROVIDERS: ATTEND Internal Medicine | DX: N50.89 Other specified disorders of the male genital organs (principal) | CPT/HCPCS: 76870; 93976 ==

== ENCOUNTER 2022-10-11 14:54 | Inpatient (IN) | payer OTHER ==
[2022-10-11 15:26] LABS: #Basophils 0.1 thou/uL (0.0-0.2); #Eosinphils 0.3 thou/uL (0.0-0.7); #Lymphocytes 2.1 thou/uL (1.20-3.40); #Monocytes 0.9 thou/uL (0.11-0.59); #Neutrophils 10.6 thou/uL (1.40-6.50); %Basophils 0.8 % (0.0-1.0); %Eosinophils 2.2 % (0.0-10.0); %Lymphocytes 15.2 % (21.0-51.0); %Monocytes 6.2 % (0.0-10.0); %Neutrophils 75.6 % (42.0-75.0); Hemoglobin 14.2 g/dL (14.0-18.0); Mean Corpuscular HGB CONC 33.5 g/dL (32.0-36.0); Mean Corpuscular Hemoglobin 31.1 pg (27.0-31.0); Mean Platelet Volume 7.5 fL (7.4-10.4); Platelet Count 331 10x3/uL (130-400); RBC Distribution Width 11.9 % (11.5-14.5); Red Blood Cell (RBC) Count 4.57 mill/uL (4.70-6.10)
[2022-10-11 16:08] LABS: ALT (SGPT) 13 U/L (8-55); AST (SGOT) 18 U/L (5-34); Albumin 4.5 g/dL (3.4-4.8); Alkaline Phosphatase 86 U/L (40-110); Anion Gap 17 mmol/L (10-20); BUN (Urea Nitrogen) 23 mg/dL (8.4-25.7); Bilirubin, Total 0.4 mg/dL (0.2-1.2); Calc. Creatinine Clearance 0 mL/min (70-130); Calcium 9.7 mg/dL (7.8-10.44); Carbon Dioxide 22 mmol/L (23-31); Chloride 104 mmol/L (98-107); Estimated GFR 34; Globulin 2.9 g/dL (2.4-3.5); Glucose 133 mg/dL (83-110); Potassium 4.8 mmol/L (3.5-5.1); Protein, Total 7.4 g/dL (5.8-8.1); Sodium 138 mmol/L (136-145)
[2022-10-11] MEDS ORDERED: Ondansetron PF 4 MG/2 ML Vial ONE (16:28)
[2022-10-11] MEDS ORDERED: Morphine 4 MG/ML VIAL ONE (16:28)
[2022-10-11] MEDS ORDERED: Senokot S 8.6-50 MG TAB PO PRN (18:08)
[2022-10-11] MEDS ORDERED: Ondansetron PF 4 MG/2 ML Vial IVP PRN (18:08)
[2022-10-11] MEDS ORDERED: Labetalol HCl 100 MG/20 ML VIAL SLOW IVP PRN (18:08)
[2022-10-11] MEDS ORDERED: Insulin Regular 300 UNITS/3 ML VIAL SC PRN ×2 (18:08)
[2022-10-11] MEDS ORDERED: Ondansetron ODT 4 MG TAB PO PRN (18:08)
[2022-10-11] MEDS ORDERED: Dextrose 5% in Water 1,000 ML IV PRN (18:08)
[2022-10-11] MEDS ORDERED: Dextrose 50% Abboject 50 ML SYRINGE SLOW IVP PRN (18:08)
[2022-10-11 18:40] LABS: Hemoglobin A1c 6.4 % (4.0-6.0)
[2022-10-11 18:47] LABS: Magnesium 1.9 mg/dL (1.6-2.6); Phosphorus 2.8 mg/dL (2.3-4.7)
[2022-10-11] MEDS: Rosuvastatin 20 MG TAB PO SCH (21:28)
[2022-10-11] MEDS: Acetaminophen 325 MG TAB PO PRN (21:29)
[2022-10-11] MEDS: Loratadine 10 MG TAB PO SCH (21:29)
[2022-10-11] MEDS: diphenhydrAMINE 25 MG CAP PO PRN (21:30)
[2022-10-11] MEDS: Sodium Chloride 0.9% 1,000 ML IV SCH (21:32)
[2022-10-11 21:39] LABS: Troponin I Less than 0.010 ng/mL (< 0.028)
[2022-10-11] MEDS ORDERED: Morphine 4 MG/ML VIAL SLOW IVP SCH (22:15)
[2022-10-12 01:45] VITALS: BMI 25.0
[2022-10-12 01:47] LABS: Troponin I 0.014 ng/mL (< 0.028)
[2022-10-12] MEDS: Morphine 4 MG/ML VIAL SLOW IVP PRN ×4 (02:28→20:56)
[2022-10-12 05:18] LABS: #Basophils 0.1 thou/uL (0.0-0.2); #Eosinphils 0.7 thou/uL (0.0-0.7); #Lymphocytes 3.1 thou/uL (1.20-3.40); #Neutrophils 4.4 thou/uL (1.40-6.50); %Basophils 0.8 % (0.0-1.0); %Eosinophils 7.5 % (0.0-10.0); %Lymphocytes 33.5 % (21.0-51.0); %Monocytes 10.9 % (0.0-10.0); %Neutrophils 47.3 % (42.0-75.0); Hemoglobin 11.4 g/dL (14.0-18.0); Mean Corpuscular HGB CONC 32.3 g/dL (32.0-36.0); Mean Platelet Volume 7.4 fL (7.4-10.4); Platelet Count 261 10x3/uL (130-400); RBC Distribution Width 11.7 % (11.5-14.5); Red Blood Cell (RBC) Count 3.81 mill/uL (4.70-6.10); White Blood Cell (WBC) Count 9.2 10x3/uL (4.8-10.8)
[2022-10-12 05:37] LABS: Anion Gap 13 mmol/L (10-20); BUN (Urea Nitrogen) 22 mg/dL (8.4-25.7); Calc. Creatinine Clearance 34 mL/min (70-130); Calcium 9.1 mg/dL (7.8-10.44); Carbon Dioxide 25 mmol/L (23-31); Cardiac Risk 3.6 (Less than 4.5); Chloride 107 mmol/L (98-107); Cholesterol 124 mg/dl (< 200 Desired); Estimated GFR 41; Glucose 113 mg/dL (83-110); HDL Cholesterol 34 mg/dL (>60 Neg Risk); LDL Cholesterol, Calculated 56 mg/dL; Potassium 4.6 mmol/L (3.5-5.1); Sodium 140 mmol/L (136-145); Triglycerides 170 mg/dL (Less than 150)
[2022-10-12] MEDS: Levothyroxine Sodium 25 MCG TAB PO SCH (06:16)
[2022-10-12] MEDS: Sodium Chloride 0.9% 1,000 ML IV SCH ×2 (09:03→20:55)
[2022-10-12] MEDS: Amlodipine 10 MG TAB PO SCH (09:05)
[2022-10-12] MEDS: Montelukast Sodium 10 mg Tablet PO SCH (09:05)
[2022-10-12] MEDS: metFORMIN 500 MG TAB PO SCH ×3 (09:05→16:20)
[2022-10-12] MEDS: Loratadine 10 MG TAB PO SCH ×2 (09:09→20:55)
[2022-10-12] MEDS: Rosuvastatin 20 MG TAB PO SCH (20:55)
[2022-10-12] MEDS: diphenhydrAMINE 25 MG CAP PO PRN (20:56)
[2022-10-13] MEDS: Morphine 4 MG/ML VIAL SLOW IVP PRN ×3 (03:04→16:13)
[2022-10-13] MEDS: Levothyroxine Sodium 25 MCG TAB PO SCH (05:53)
[2022-10-13] MEDS: Acetaminophen 325 MG TAB PO PRN (05:56)
[2022-10-13 06:12] LABS: #Basophils 0.1 thou/uL (0.0-0.2); #Eosinphils 0.8 thou/uL (0.0-0.7); #Lymphocytes 2.6 thou/uL (1.20-3.40); #Monocytes 0.9 thou/uL (0.11-0.59); #Neutrophils 4.4 thou/uL (1.40-6.50); %Basophils 0.7 % (0.0-1.0); %Eosinophils 9.5 % (0.0-10.0); %Lymphocytes 29.4 % (21.0-51.0); %Monocytes 10.3 % (0.0-10.0); %Neutrophils 50.1 % (42.0-75.0); Hemoglobin 11.6 g/dL (14.0-18.0); Mean Corpuscular HGB CONC 32.5 g/dL (32.0-36.0); Mean Corpuscular Hemoglobin 30.8 pg (27.0-31.0); Mean Corpuscular Volume 94.9 fl (78.0-98.0); Mean Platelet Volume 7.6 fL (7.4-10.4); Platelet Count 245 10x3/uL (130-400); RBC Distribution Width 11.7 % (11.5-14.5); Red Blood Cell (RBC) Count 3.75 mill/uL (4.70-6.10); White Blood Cell (WBC) Count 8.7 10x3/uL (4.8-10.8)
[2022-10-13 06:34] LABS: Anion Gap 13 mmol/L (10-20); BUN (Urea Nitrogen) 15 mg/dL (8.4-25.7); Calc. Creatinine Clearance 47 mL/min (70-130); Calcium 8.7 mg/dL (7.8-10.44); Carbon Dioxide 22 mmol/L (23-31); Chloride 106 mmol/L (98-107); Estimated GFR 61; Glucose 113 mg/dL (83-110); Potassium 4.6 mmol/L (3.5-5.1); Sodium 136 mmol/L (136-145)
[2022-10-13] MEDS: Montelukast Sodium 10 mg Tablet PO SCH (08:05)
[2022-10-13] MEDS: Amlodipine 10 MG TAB PO SCH (08:05)
[2022-10-13] MEDS: Loratadine 10 MG TAB PO SCH ×2 (08:05→20:22)
[2022-10-13] MEDS: metFORMIN 500 MG TAB PO SCH ×2 (08:05→16:14)
[2022-10-13] MEDS: Sodium Chloride 0.9% 1,000 ML IV SCH (09:42)
[2022-10-13] MEDS: Rosuvastatin 20 MG TAB PO SCH (20:21)
[2022-10-13] MEDS: diphenhydrAMINE 25 MG CAP PO PRN (20:23)
[2022-10-14] MEDS: Levothyroxine Sodium 25 MCG TAB PO SCH (05:51)
[2022-10-14 06:43] LABS: #Lymphocytes 2.3 thou/uL (1.20-3.40); #Monocytes 0.8 thou/uL (0.11-0.59); %Basophils 0.5 % (0.0-1.0); %Lymphocytes 28.5 % (21.0-51.0); %Monocytes 9.9 % (0.0-10.0); Hemoglobin 11.8 g/dL (14.0-18.0); Mean Corpuscular HGB CONC 34.1 g/dL (32.0-36.0); Mean Corpuscular Hemoglobin 31.8 pg (27.0-31.0); Mean Corpuscular Volume 93.2 fl (78.0-98.0); Mean Platelet Volume 7.4 fL (7.4-10.4); Platelet Count 248 10x3/uL (130-400); RBC Distribution Width 11.6 % (11.5-14.5); Red Blood Cell (RBC) Count 3.72 mill/uL (4.70-6.10); White Blood Cell (WBC) Count 8.1 10x3/uL (4.8-10.8)
[2022-10-14 07:05] LABS: Anion Gap 12 mmol/L (10-20); BUN (Urea Nitrogen) 15 mg/dL (8.4-25.7); Calc. Creatinine Clearance 45 mL/min (70-130); Calcium 9.1 mg/dL (7.8-10.44); Carbon Dioxide 25 mmol/L (23-31); Chloride 106 mmol/L (98-107); Estimated GFR 58; Glucose 103 mg/dL (83-110); Potassium 4.6 mmol/L (3.5-5.1); Sodium 138 mmol/L (136-145)
[2022-10-14] MEDS: Amlodipine 10 MG TAB PO SCH (08:42)
[2022-10-14] MEDS: Loratadine 10 MG TAB PO SCH (08:42)
[2022-10-14] MEDS: metFORMIN 500 MG TAB PO SCH (08:42)
[2022-10-14] MEDS: Montelukast Sodium 10 mg Tablet PO SCH (08:42)
[2022-10-14 12:00] VITALS: TEMP 98.3
[2022-10-14 13:13] VITALS: BP 138/81
== END 2022-10-14 15:08 | disposition home or self-care (01) | DRG 563 ==
LOC: ERS 14:54 → ERHOLD 17:22 → NEURO 18:50 → OBSVTOIN 10-12 15:38
PROVIDERS: ADMIT Hospitalist; ATTEND Family Medicine
DX: S82.831A Other fracture of upper and lower end of right fibula, initial encounter for closed fracture (principal); N17.9 Acute kidney failure, unspecified; Z66 Do not resuscitate; Z20.822 Contact with and (suspected) exposure to COVID-19; K21.9 Gastro-esophageal reflux disease without esophagitis; E03.9 Hypothyroidism, unspecified; E78.5 Hyperlipidemia, unspecified; E11.22 Type 2 diabetes mellitus with diabetic chronic kidney disease; I12.9 Hypertensive chronic kidney disease with stage 1 through stage 4 chronic kidney disease, or unspecified chronic kidney disease; J45.909 Unspecified asthma, uncomplicated; G93.89 Other specified disorders of brain; R55 Syncope and collapse; W18.30XA Fall on same level, unspecified, initial encounter; E86.0 Dehydration; N18.30 Chronic kidney disease, stage 3 unspecified; Z88.5 Allergy status to narcotic agent; Z88.8 Allergy status to other drugs, medicaments and biological substances; Z79.890 Hormone replacement therapy; Z79.82 Long term (current) use of aspirin; Z79.51 Long term (current) use of inhaled steroids; Z79.899 Other long term (current) drug therapy; Z87.891 Personal history of nicotine dependence; Z79.84 Long term (current) use of oral hypoglycemic drugs
CPT/HCPCS: 36415; 36416; 70450; 70551; 71045; 72125; 80048; 80053; 80061; 82553; 83036; 83735; 84100; 84484; 85025; 93005; 93306; 93880; 94640; 95712; 95819; 95957; 96374; 96375; 96376; G0378; J2270; J2405; J7050; J7620; U0003; U0005

== ENCOUNTER 2022-11-21 11:15 | Outpatient (CLI) | payer OTHER ==
[2022-11-21 12:19] LABS: Hemoglobin 13.2 g/dL (13.5-17.5); Mean Corpuscular HGB CONC 33.8 g/dL (32.0-36.0); Mean Corpuscular Hemoglobin 30.8 pg (27.0-33.0); Mean Corpuscular Volume 91.1 fl (81.2-95.1); Mean Platelet Volume 9.5 fl (7.4-10.4); Platelet Count 333 10x3/uL (150-450); RBC Distribution Width 12.9 % (11.5-14.5); Red Blood Cell (RBC) Count 4.29 10x6/uL (4.32-5.72); White Blood Cell (WBC) Count 9.8 10x3/uL (3.5-10.5)
[2022-11-21 12:31] LABS: Bilirubin 1+ (Negative); Blood, Urine 10 (Negative); Clarity Clear (Clear); Glucose, Urine (Dipstick) 50 mg/dL (Negative); Ketone, Urine 5 mg/dL (Negative); Leukocyte 25 (Negative); Nitrite Negative (Negative); Protein, Urine (Dipstick) 30 mg/dl (Neg-Trace)
[2022-11-21 12:41] LABS: Squamous Epithelial 0-3 HPF (0-3); WBC/HPF 0-3 HPF (0-3)
[2022-11-21 12:42] LABS: Bacteria/HPF 1+ HPF (None Seen); Mucous/LPF 1+ LPF (<2+)
[2022-11-21 12:47] LABS: PTT 24.7 sec (22.0-33.0); Prothrombin Time 10.8 sec (9.5-12.1)
[2022-11-21 12:51] LABS: Anion Gap 16 mmol/L (10-20); BUN (Urea Nitrogen) 16 mg/dL (8.4-25.7); Calc. Creatinine Clearance 0 mL/min (70-130); Calcium 9.6 mg/dL (7.8-10.44); Carbon Dioxide 22 mmol/L (23-31); Chloride 104 mmol/L (98-107); Estimated GFR 48; Glucose 167 mg/dL (83-110); Potassium 4.7 mmol/L (3.5-5.1); Sodium 137 mmol/L (136-145)
== END 2022-11-21 11:16 | disposition home or self-care (01) ==
LOC: LABBT 11:15
PROVIDERS: ATTEND Urology
DX: Z01.818 Encounter for other preprocedural examination (principal); N40.1 Benign prostatic hyperplasia with lower urinary tract symptoms; N50.3 Cyst of epididymis
CPT/HCPCS: 80048; 81001; 85027; 85610; 85730; 87086; 93005; 93010

== ENCOUNTER 2022-11-27 21:18 | Emergency (ER) | payer OTHER ==
[2022-11-27 23:38] LABS: #Basophils 0.1 thou/uL (0.0-0.2); #Eosinphils 1.2 thou/uL (0.0-0.7); #Lymphocytes 2.5 thou/uL (1.20-3.40); #Monocytes 1.2 thou/uL (0.11-0.59); #Neutrophils 7.6 thou/uL (1.40-6.50); %Basophils 0.6 % (0.0-1.0); %Eosinophils 9.4 % (0.0-10.0); %Lymphocytes 19.8 % (21.0-51.0); %Monocytes 9.7 % (0.0-10.0); %Neutrophils 60.6 % (42.0-75.0); Hemoglobin 12.1 g/dL (14.0-18.0); Mean Corpuscular HGB CONC 34.5 g/dL (32.0-36.0); Mean Corpuscular Hemoglobin 31.8 pg (27.0-31.0); Mean Platelet Volume 7.8 fL (7.4-10.4); Platelet Count 276 10x3/uL (130-400); RBC Distribution Width 11.6 % (11.5-14.5); Red Blood Cell (RBC) Count 3.82 mill/uL (4.70-6.10); White Blood Cell (WBC) Count 12.6 10x3/uL (4.8-10.8)
[2022-11-28] LABS: ALT (SGPT) 7 U/L (8-55); AST (SGOT) 14 U/L (5-34); Albumin 4.3 g/dL (3.4-4.8); Alkaline Phosphatase 63 U/L (40-110); Anion Gap 16 mmol/L (10-20); BUN (Urea Nitrogen) 18 mg/dL (8.4-25.7); Bilirubin, Total 0.3 mg/dL (0.2-1.2); Calc. Creatinine Clearance 0 mL/min (70-130); Calcium 9.4 mg/dL (7.8-10.44); Carbon Dioxide 22 mmol/L (23-31); Chloride 106 mmol/L (98-107); Estimated GFR 55; Globulin 2.2 g/dL (2.4-3.5); Glucose 102 mg/dL (83-110); Potassium 4.4 mmol/L (3.5-5.1); Protein, Total 6.5 g/dL (5.8-8.1); Sodium 140 mmol/L (136-145)
[2022-11-28] MEDS ORDERED: Dexamethasone 4 MG TAB ONE (03:09)
[2022-11-28] MEDS ORDERED: Ipratropium Bromide 2.5 ml Neb ONE ×2 (03:16→04:07)
[2022-11-28] MEDS ORDERED: Albuterol Sulfate 2.5 mg/3 ml Neb ONE ×2 (03:17→04:08)
[2022-11-28] MEDS ORDERED: Albuterol Sulfate 1.25 MG/3 ML NEB ONE (04:07)
[2022-11-28 04:09] LABS: Bilirubin Negative (Negative); Blood, Urine Negative (Negative); Clarity Clear (Clear); Glucose, Urine (Dipstick) Normal (Negative); Ketone, Urine 10 mg/dL (Negative); Leukocyte Negative Leu/uL (Negative); Nitrite Negative (Negative); Protein, Urine (Dipstick) 10 mg/dL (Neg-Trace); Specific Gravity, Urine 1.022 (1.002-1.036); Urobilinogen Normal mg/dL (Less than 2); pH, Urine 5.5 (5.0-9.0)
== END 2022-11-28 04:45 | disposition home or self-care (01) ==
LOC: ERS 21:18
DX: J18.9 Pneumonia, unspecified organism (principal); J20.9 Acute bronchitis, unspecified; I10 Essential (primary) hypertension; K21.9 Gastro-esophageal reflux disease without esophagitis; E11.9 Type 2 diabetes mellitus without complications; E78.00 Pure hypercholesterolemia, unspecified; Z87.891 Personal history of nicotine dependence
CPT/HCPCS: 36415; 71045; 80053; 81003; 84484; 85025; 87804; 93005; 94640; J7611; J7620; J8540

== ENCOUNTER 2023-01-02 11:13 | Outpatient (CLI) | payer OTHER | END 2023-01-02 11:14 | disposition home or self-care (01) | LOC: BICRAD 11:13 | PROVIDERS: ATTEND Internal Medicine | DX: J45.901 Unspecified asthma with (acute) exacerbation (principal) | CPT/HCPCS: 36415; 71046; 80053; 82043; 82607; 83036; 85025 ==

== ENCOUNTER 2023-05-14 12:45 | Outpatient (CLI) | payer OTHER ==
[~2023-05-14 12:45] MED LIST changes: -ISOVUE-370 76%-LOCM 1 ML ONE; +Iopamidol 370 76% 100 ML VIAL ONE
== END 2023-05-14 12:46 | disposition home or self-care (01) ==
LOC: BICCT 12:45
PROVIDERS: ATTEND Internal Medicine
DX: E03.9 Hypothyroidism, unspecified (principal); R60.9 Edema, unspecified; R10.9 Unspecified abdominal pain; K57.30 Diverticulosis of large intestine without perforation or abscess without bleeding; K76.89 Other specified diseases of liver; K46.9 Unspecified abdominal hernia without obstruction or gangrene; N40.0 Benign prostatic hyperplasia without lower urinary tract symptoms
CPT/HCPCS: 70491; 74177; 80053; 81001; 83036; 83690; 84439; 84443; 85025; Q9967

== ENCOUNTER 2023-07-11 10:25 | Outpatient (CLI) | payer OTHER | END 2023-07-11 10:26 | disposition home or self-care (01) | LOC: RAD 10:25 | PROVIDERS: ATTEND Internal Medicine | DX: M79.644 Pain in right finger(s) (principal); S62.636A Displaced fracture of distal phalanx of right little finger, initial encounter for closed fracture ==

== ENCOUNTER 2023-10-31 09:23 | Outpatient (CLI) | payer OTHER | END 2023-10-31 09:24 | disposition home or self-care (01) | LOC: BICRAD 09:23 | PROVIDERS: ATTEND Internal Medicine | DX: M25.512 Pain in left shoulder (principal); R07.81 Pleurodynia; M88.812 Osteitis deformans of left shoulder ==

== ENCOUNTER 2023-12-12 08:13 | Outpatient (CLI) | payer OTHER ==
[2023-12-12] MEDS ORDERED: Iopamidol-370 76% 500 ML MDV (1 ML CHARGE) ONE (13:41)
== END 2023-12-12 08:14 | disposition home or self-care (01) ==
LOC: BICCT 08:13
PROVIDERS: ATTEND Urology
DX: R31.0 Gross hematuria (principal); K57.30 Diverticulosis of large intestine without perforation or abscess without bleeding; N40.0 Benign prostatic hyperplasia without lower urinary tract symptoms; N32.89 Other specified disorders of bladder
CPT/HCPCS: 74178; Q9967

== ENCOUNTER 2024-04-21 07:06 | Outpatient (CLI) | payer OTHER | END 2024-04-21 07:07 | disposition home or self-care (01) | LOC: NM 07:06 | PROVIDERS: ATTEND Internal Medicine Endocrinology, Diabetes & Metabolism | DX: M85.9 Disorder of bone density and structure, unspecified (principal) | CPT/HCPCS: 78306; A9503 ==

== ENCOUNTER 2024-05-19 10:42 | Day surgery (SDC) | payer OTHER ==
[2024-05-19] MEDS: Zoledronic Acid/Mannitol&Water 5 MG in Premix 1 BAG IVPB SCH (11:13)
[2024-05-19 11:24] VITALS: BP 163/70; TEMP 98.2
== END 2024-05-19 12:10 | disposition home or self-care (01) ==
LOC: ONC/OP 10:42
PROVIDERS: ATTEND Internal Medicine Endocrinology, Diabetes & Metabolism
DX: M85.9 Disorder of bone density and structure, unspecified (principal); E11.65 Type 2 diabetes mellitus with hyperglycemia; E21.2 Other hyperparathyroidism; I10 Essential (primary) hypertension; J45.20 Mild intermittent asthma, uncomplicated; E03.9 Hypothyroidism, unspecified; K21.9 Gastro-esophageal reflux disease without esophagitis; N40.0 Benign prostatic hyperplasia without lower urinary tract symptoms; Z90.49 Acquired absence of other specified parts of digestive tract; Z79.82 Long term (current) use of aspirin; Z79.84 Long term (current) use of oral hypoglycemic drugs; Z79.890 Hormone replacement therapy; Z79.899 Other long term (current) drug therapy
CPT/HCPCS: 96413; J3489

== ENCOUNTER 2024-05-27 10:06 | Outpatient (CLI) | payer OTHER | END 2024-05-27 10:07 | disposition home or self-care (01) | LOC: BICMAMMO 10:06 | PROVIDERS: ATTEND Internal Medicine Endocrinology, Diabetes & Metabolism | DX: M85.89 Other specified disorders of bone density and structure, multiple sites (principal); M81.0 Age-related osteoporosis without current pathological fracture | CPT/HCPCS: 77080 ==

== ENCOUNTER 2024-09-10 12:18 | Outpatient (CLI) | payer OTHER | END 2024-09-10 12:19 | disposition home or self-care (01) | LOC: RAD 12:18 | PROVIDERS: ATTEND Internal Medicine | DX: R07.81 Pleurodynia (principal) ==

== ENCOUNTER 2024-09-23 09:29 | Outpatient (CLI) | payer OTHER | END 2024-09-23 09:30 | disposition home or self-care (01) | LOC: BICULT 09:29 | PROVIDERS: ATTEND Internal Medicine | DX: R10.9 Unspecified abdominal pain (principal); K76.89 Other specified diseases of liver; N28.89 Other specified disorders of kidney and ureter | CPT/HCPCS: 76700 ==

== ENCOUNTER 2024-10-07 13:30 | Outpatient (CLI) | payer OTHER | END 2024-10-07 13:31 | disposition home or self-care (01) | LOC: BICRAD 13:30 | PROVIDERS: ATTEND Internal Medicine | DX: M47.26 Other spondylosis with radiculopathy, lumbar region (principal); M47.24 Other spondylosis with radiculopathy, thoracic region; M51.14 Intervertebral disc disorders with radiculopathy, thoracic region; M25.78 Osteophyte, vertebrae; I70.0 Atherosclerosis of aorta; M89.9 Disorder of bone, unspecified; S32.059A Unspecified fracture of fifth lumbar vertebra, initial encounter for closed fracture; Z98.1 Arthrodesis status | CPT/HCPCS: 72072; 72100 ==

== ENCOUNTER 2025-01-07 13:13 | Outpatient (CLI) | payer OTHER | END 2025-01-07 13:14 | disposition home or self-care (01) | LOC: BICRAD 13:13 | PROVIDERS: ATTEND Internal Medicine | DX: R05.9 Cough, unspecified (principal); I70.0 Atherosclerosis of aorta; M47.814 Spondylosis without myelopathy or radiculopathy, thoracic region; M19.011 Primary osteoarthritis, right shoulder; M19.012 Primary osteoarthritis, left shoulder; Z98.1 Arthrodesis status | CPT/HCPCS: 71046 ==

== ENCOUNTER 2025-06-28 06:06 | Day surgery (SDC) | payer OTHER ==
[2025-06-25 10:40] VITALS: BMI 23.9
[2025-06-28] MEDS ORDERED: PROPOFOL 20 ML ONE ×3 (06:56→09:02)
[2025-06-28] MEDS ORDERED: Lidocaine 1% PF 5 ML VIAL ONE (06:56)
[2025-06-28] MEDS ORDERED: PHENYLEPHRINE-NS 100 MCG/ML 10 ML SYRINGE ONE (08:43)
== END 2025-06-28 09:56 | disposition home or self-care (01) ==
LOC: SDC 06:06
PROVIDERS: ATTEND Internal Medicine
PROC: 0DBK8ZZ Excision of Ascending Colon, Via Natural or Artificial Opening Endoscopic (ICD-10-PCS; principal; 2025-06-28)
PROC: 0DBL8ZZ Excision of Transverse Colon, Via Natural or Artificial Opening Endoscopic (ICD-10-PCS; 2025-06-28)
PROC: 0DBM8ZZ Excision of Descending Colon, Via Natural or Artificial Opening Endoscopic (ICD-10-PCS; 2025-06-28)
DX: Z12.11 Encounter for screening for malignant neoplasm of colon (principal); D12.4 Benign neoplasm of descending colon; D12.2 Benign neoplasm of ascending colon; D12.3 Benign neoplasm of transverse colon; K57.30 Diverticulosis of large intestine without perforation or abscess without bleeding; K64.8 Other hemorrhoids; K21.9 Gastro-esophageal reflux disease without esophagitis; Z86.0101 Personal history of adenomatous and serrated colon polyps; Z83.719 Family history of colon polyps, unspecified; Z98.42 Cataract extraction status, left eye; Z90.89 Acquired absence of other organs; Z90.49 Acquired absence of other specified parts of digestive tract; Z88.8 Allergy status to other drugs, medicaments and biological substances; Z88.5 Allergy status to narcotic agent
CPT/HCPCS: 45385; J2704; 88305

== ENCOUNTER 2025-09-22 11:59 | Outpatient (CLI) | payer OTHER | END 2025-09-22 12:00 | disposition home or self-care (01) | LOC: BICMAMMO 11:59 | PROVIDERS: ATTEND Internal Medicine Endocrinology, Diabetes & Metabolism | DX: M85.89 Other specified disorders of bone density and structure, multiple sites (principal); M81.0 Age-related osteoporosis without current pathological fracture; M85.88 Other specified disorders of bone density and structure, other site | CPT/HCPCS: 77080 ==